=== PATIENT | male | born 1965 | race Caucasian/White ===

== ENCOUNTER 2024-05-07 10:02 | Outpatient (AMB) | payer OTHER, SELFPAY ==
--- NOTE | 2024-05-07 10:12 | A.OFFPC_ITS ---
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 Intake Note: establishing care Allergies No Known Allergies Allergy (Verified 05/07/24 10:12) Medication List - Last Reconciled 05/07/24 by Vargas Day MD allopurinol 300 mg PO DAILY ascorbic acid (vitamin C) 1 g PO Q6H aspirin (Adult Aspirin Regimen) 81 mg PO DAILY atorvastatin 20 mg PO DAILY calcium carbonate (Calcium 600) 600 mg PO DAILY ferrous sulfate 325 mg PO DAILY omega-3 fatty acids-fish oil 360-1,200 mg (Fish Oil) 1 cap PO DAILY Tobacco use date assessed: 05/07/24 Dental Screening Dental Screen Date: 05/07/24 Did you have a dental visit in the last 12 months?: Yes Did you have a dental problem in the last 6 months where you did not have access to dental care?: No Was dental information given to patient?: Patient has dentist HPI PATIENT ACCOUNTING REPRESENTATIVE requesting PE HPI Details New Patient? ?? Prior PCP:? Dr Coronel Last office visit/CPE:? > 1 yr Acute issue(s):? Low back pain. Worse with laying down. Imaging done years ago ? Bulging disc. Occassionally radiates down L posterior buttock/leg. Takes 3 ibuprofen occassionally. Urinary hesitancy and some notriuria ?? PMHx:?HLD, Gout, Mild anemia, diverticulitis SurgHx:? Deviated nasal septum FHx:? Mom: bradycardia. Dad: HTN, HLD. 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 Nonsmoker. EtOH Weekends 4-5. No drugs HPI Comments History of Present Illness Details Documentation assistance for Vargas Day MD, was provided by Torres Fletcher,? [place] [employer] Member on 05/07/2024 at 11:08 AM EST. Caraballo, Dr. Day, have read, observed, and verified documentation. 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 1. Little interest or pleasure in doing things: not at all 2. Feeling down, depressed, or hopeless: not at all 3. Trouble falling or staying asleep, or sleeping too much: several days 4. Feeling tired or having little energy: several days 5. Poor appetite or overeating: several days 6. Feeling bad about yourself - or that you are a failure or have let yourself or your family down: not at all 7. Trouble concentrating on things, such as reading the newspaper or watching television: not at all 8. Moving or speaking so slowly that other people could have noticed. Or the opposite - being so fidgety or restless that you have been moving around a lot more than usual: not at all 9. Thoughts that you would be better off or of hurting yourself in some way: not at all Total score: 3 Depression Screening Interpretation: Negative Depression Screening Done: Yes 07851 - PHQ-9 Billing: Yes Source: Developed by Drs. Danny Sanchez, Shavon Love, Maximiliano Bee and colleagues, with an educational lynne from [employer]. Thrive Questionnaire Date Thrive assessed: 05/07/24 I am a: Patient What is your living situation today?: I have a steady place to live Within the past 12 months, did the food you bought not last and you didn't have the money to get more?: Never true Within the past 12 months, did you worry whether your food would run out before you got money to buy more?: Never true Do you have trouble paying for medicines?: No Do you have trouble getting transportation to medical appointments?: No Do you have trouble paying your heating and electricity bill?: No Do you have trouble taking care of your child, family member or friend?: No Do you have trouble with day-to-day activities such as bathing, preparing meals, shopping, managing finances, etc.?: No Are you currently unemployed and looking for a job?: No Are you interested in more education?: No Please select the resources that you would like help with: None Currently or been in a relationship where the following occur: No concerns reported THRIVE Score: 0 AUDIT C Alcohol Use Questionnaire (AUDIT-C) 1. How often do you have a drink containing alcohol?: Monthly or less 2. How many drinks containing alcohol do you have on a typical day when you are drinking?: 3 or 4 3. How often do you have six or more drinks on one occasion?: Less than monthly Total Score: 3 Score Reviewed/Action Taken: Yes GABRIEL-7 AMB Questionnaire GABRIEL-7 Date GABRIEL - 7 assessed: 05/07/24 Feeling nervous, anxious, or on edge: 0 = Not at all Not being able to stop or control worryin = Not at all Worrying too much about different things: 0 = Not at all Trouble relaxin = Not at all Being so restless that it is hard to sit still: 0 = Not at all Becoming easily annoyed or irritable: 0 = Not at all Feeling afraid as if something awful might happen: 0 = Not at all Total GABRIEL-7 score (0-4 normal; 5-9 mild; 10-14 moderate; 15-21 severe): 0 Source: Developed by Drs. Danny Sanchez, Shavon Love, Maximiliano Bee and colleagues, with an educational lynne from [employer]. GABRIEL-7 Assessment Billing GABRIEL-7 Assessment Tool: GABRIEL-7 Assessment 12838 Review of Systems Const Denies chills, Denies fatigue, Denies fever(s), Denies headache(s) and Denies weakness ENT Denies dizziness and Denies headache(s) Card Denies chest pain, Denies lightheadedness, Denies dyspnea and Denies other (Palpitations) Resp Denies cough, Denies dyspnea, Denies wheezing and Denies other ( shortness of breath) Musc Reports back pain, Denies numbness and Denies tingling Neuro Denies dizziness, Denies headache(s), Denies numbness, Denies tingling, Denies paresthesias and Denies weakness Psych Denies anxiety and Denies depression Endo Denies fatigue Aller/Immun Denies wheezing Physical exam (Primary Care) Vital Signs: Last Vital Signs Temp 97.7 F 05/07/24 10:30 Pulse 56 05/07/24 10:30 Resp 16 05/07/24 10:30 BP 120/70 05/07/24 10:30 Pulse Ox 98 05/07/24 10:30 Oxygen Delivery Method Room Air 05/07/24 10:30 BMI result Body Mass Index 29.6 Tobacco/Smoking Status: Tobacco use Status Tobacco use date assessed 05/07/24 05/07/24 10:27 Patient Tobacco Use Status Never used Tobacco 05/07/24 10:27 e-Cigarette/Vaping Use Never Used 05/07/24 10:27 PHQ-9: PHQ-9 Score PHQ-9: Total score 3 05/07/24 10:42 Depression Screening Interpretation: Negative Thrive Assessment: Date of Thrive Assessment Date Thrive assessed 05/07/24 05/07/24 10:29 Currently or been in a relationship where the following occur: No concerns reported Const General: no acute distress and well developed Nutritional Appearance: well nourished Orientation/consciousness: patient oriented x3 [facility] Head: Yes normocephalic and Yes atraumatic Eyes General: appearance normal, both eyes and all related structures Pupils: Equal, round and reactive pupils present EOM: EOMs intact bilaterally Resp Effort & Inspection: normal respiratory effort Auscultation: clear to auscultation bilaterally Cardio Rate: regular rate Rhythm: regular rhythm Heart sounds: S1 normal heart sound present, S2 normal heart sound present, no gallops, no murmurs and no rubs Neuro General: patient oriented x3 and gait normal Cranial nerves: Yes Equal, round and reactive pupils present Psych Affect: normal affect Assessment and Plan Assessment & Plan (1) Low back pain: Code(s): M54.50 - Low back pain, unspecified Plan: Chronic?low?back?pain.??Likely?combination?of?recurrent?strain?and?symptoms?also ?consistent?with?a?mild/early?spinal?stenosis Recommended?x- rays?and?physical?therapy.??Patient?would?like?to?hold?off?on?this?though?he?may ?be?more?amenable?to?this?in?the?future. 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 Will?follow (2) Gout: Code(s): M10.9 - Gout, unspecified Plan: Will?follow?will?follow-up?check?uric?acid?level Continue?allopurinol Advised?decreased?alcohol?intake?on?weekends (3) Hyperlipidemia: Code(s): E78.5 - Hyperlipidemia, unspecified Plan: He?is?on?atorvastatin Check?lipid (4) Urinary hesitancy: Code(s): R39.11 - Hesitancy of micturition Plan: Check?urine?studies?and?PSA?level (5) Diverticulitis: Code(s): K57.92 - Diverticulitis of intestine, part unspecified, without perforation or abscess without bleeding Plan: History?of?diverticulitis Currently?has?no?symptoms (6) Anemia: Code(s): D64.9 - Anemia, unspecified Plan: History?of?anemia?and?he?has?put?himself?on?iron Check?complete?blood?count?and?iron?level (7) Laboratory exam ordered as part of routine general medical examination: Code(s): Z00.00 - Encounter for general adult medical examination without abnormal findings Plan: Check?labs Orders: Orders Comprehensive [place]. Panel Fast Today Z00.00 - Encounter for general adult medical examination without abnormal findings Complete Blood Count Auto Diff Today Z00.00 - Encounter for general adult medical examination without abnormal findings Prostate Specific Antigen Scr Today Z12.5 - Encounter for screening for malignant neoplasm of prostate UA and rflx microscopic Today Z00.00 - Encounter for general adult medical examination without abnormal findings TSH reflex Free T4 Today Z00.00 - Encounter for general adult medical examination without abnormal findings IRON PROFILE Today D64.9 - Anemia, unspecified AMB EKG-In Office Today Z00.00 - Encounter for general adult medical examination without abnormal findings Lipid Panel Today Z00.00 - Encounter for general adult medical examination without abnormal findings Microalbumin, Random (w Creat) Today I10 - Essential (primary) hypertension Uric Acid Today M10.9 - Gout, unspecified Coding Level of Care Code New Pt Level 3 (38189) Diagnoses Low back pain M54.50 Gout M10.9 Hyperlipidemia E78.5 Urinary hesitancy R39.11 Diverticulitis K57.92 Anemia D64.9 Laboratory exam ordered as part of routine general medical examination Z00.00 Additional Codes GABRIEL-7 Assessment Billing - GABRIEL-7 Assessment Tool: GABRIEL-7 Assessment [id number] ([id number])
[2024-05-07 10:30] VITALS: BP 120/70; PULSE 56; RESP 16; TEMP 36.5; O2SAT 98; BMI 29.6
== END 2024-05-07 11:27 | disposition home or self-care (01) ==
PROVIDERS: PCP Family Medicine; Visit Provider Family Medicine
DX: M54.50 Low back pain, unspecified (principal); M10.9 Gout, unspecified; E78.5 Hyperlipidemia, unspecified; R39.11 Hesitancy of micturition; K57.92 Diverticulitis of intestine, part unspecified, without perforation or abscess without bleeding; D64.9 Anemia, unspecified
CPT/HCPCS: 99203

== ENCOUNTER 2024-05-08 07:51 | Outpatient (REF) | payer OTHER, SELFPAY ==
[2024-05-08 11:43] LABS: Appearance Urine Clear; Color Urine Yellow; Glucose Urine UA Negative (Negative); Leukocyte Esterase Urine Negative (Negative); Nitrite Urine Negative (Negative); PH 5.5 (5.0-9.0); Specific Gravity - Urine 1.015 (1.005-1.025); Urine Blood Negative (Negative); Urine Ketones Negative (Negative); Urine Protein Negative (Neg-Trace)
[2024-05-08 12:09] LABS: MANUAL DIFF FLAG NO
[2024-05-08 12:41] LABS: Creatinine Urine 71.94 mg/dL; Microalbumin Urine < 5.0 mg/L
[2024-05-08 12:48] LABS: Alanine Aminotransferase 26 U/L (0-40); Albumin Level 4.1 g/dL (3.5-5.0); Alkaline Phosphatase 67 U/L (39-117); Anion Gap 11 (12-20); Aspartate Amino Transferase 27 U/L (5-37); Bilirubin Total 0.4 mg/dL (0.0-1.0); Blood Urea Nitrogen 31 mg/dL (9-16); Calcium 9.2 mg/dL (8.4-10.2); Carbon Dioxide 28 mmol/L (22-29); Chloride 104 mmol/L (96-108); Cholesterol 182 mg/dL (<200); Estimated Glomerular Filt Rate > 60; Glucose Fasting 97 mg/dL (60-99); HDL Cholesterol 82 mg/dL (>40); Iron 73 mcg/dL (45-160); LDL Cholesterol Calculated 92 mg/dL (<100); Percent Iron Saturation 30 % (15-50); Potassium 4.4 mmol/L (3.3-5.1); Sodium 139 mmol/L (135-145); Total Iron Binding Capacity 247 mcg/dL (228-428); Triglycerides 41 mg/dL (<150); Unsaturated Iron Binding 174 ug/dL
[2024-05-08 12:58] LABS: Prostate Specific Antigen Scr 1.02 ng/mL (<0.05-4.0)
[2024-05-08 13:05] LABS: Uric Acid 5.7 mg/dL (3.4-7.0)
[2024-05-08 13:11] LABS: TSH reflex Free T4 2.31 uIU/mL (0.32-4.0)
[2024-05-08 13:34] LABS: Basophils Percent Auto 0.5 % (0-2); Eosinophils Absolute Auto 0.1 X10*3/uL (0.0-0.4); Eosinophils Percent Auto 2.5 % (0-4); Hematocrit 39.1 % (42.0-52.0); Hemoglobin 13.4 g/dl (14.0-18.0); Imm Gran Abs Auto 0.02 X10*3/uL (0.00-0.03); Imm Gran Pct Auto 0.5 % (0.0-0.4); Lymphocytes Absolute Auto 1.1 X10*3/uL (1.2-4.9); Lymphocytes Percent Auto 26.7 % (20-40); Mean Corpuscular HGB Conc 34.3 g/dl (31.0-36.0); Mean Corpuscular Hemoglobin 31.9 pg (27.0-33.0); Mean Corpuscular Volume 93.1 fL (80.0-98.0); Mean Platelet Volume 10.2 fL (9.4-12.4); Monocytes Absolute Auto 0.6 X10*3/uL (0.1-1.2); Monocytes Percent Auto 14.2 % (2-11); Neutrophils Absolute Auto 2.2 x10*3/uL (2.0-8.3); Neutrophils Percent Auto 55.6 % (45-73); Platelet Count 194 X10*3/uL (160-400); Red Cell Distribution Width 14.1 % (11.0-16.0)
== END 2024-05-08 07:52 | disposition home or self-care (01) ==
LOC: HO.WFDLDS 07:51
PROVIDERS: Visit Provider Family Medicine
DX: Z00.00 Encounter for general adult medical examination without abnormal findings (principal); Z12.5 Encounter for screening for malignant neoplasm of prostate; I10 Essential (primary) hypertension; M10.9 Gout, unspecified; D64.9 Anemia, unspecified
CPT/HCPCS: 36415; 80053; 80061; 81003; 82043; 82570; 83540; 84153; 84443; 84550; 85025

== ENCOUNTER 2024-08-20 10:47 | Outpatient (AMB) | payer OTHER, SELFPAY ==
--- NOTE | 2024-08-20 11:06 | A.OFFPC_ITS ---
Vital Signs 08/20/24 11:09 Height 5 ft 8 in Weight 190 lb BMI 28.9 BP 161/76 H Blood Pressure Location Lt brachial Position Sitting Respiration 14 Pulse 57 Pulse Source Pulse Oximeter Temp 97.0 F Temp Source Skin Pulse Oximetry (%) 99 Oxygen Delivery Method Room Air Intake Visit Reasons: CPE with f/u labs and health maint. 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 30 mins HPI Details 59 y/o male presents for a CPE with f/u labs and health maintenance. Labs drawn 05/08/24. Reviewed labs with pt. Triglycerides 41. TC 182. LDL 92. HDL 82. He is on artovastatin 20mg daily. Ongoing mild anemia and notes he has had this before in the past. BP today 161/76, 57p. Notes urinary frequency and has to get up 2-3x a night. Notes last colonscopy was a number of years ago but does not remember the details. Reports difficulty achieving an ejaculation. Reports ongoing back pain. HPI Comments History of Present Illness Details Documentation assistance for Vargas Day MD, was provided by Torres Fletcher,? Director Of Land on 08/20/2024 at 11:54 AM EST. I, Dr. Day, have read, observ ed, and verified documentation. 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 1. Little interest or pleasure in doing things: not at all 2. Feeling down, depressed, or hopeless: not at all 3. Trouble falling or staying asleep, or sleeping too much: nearly every day 4. Feeling tired or having little energy: several days 5. Poor appetite or overeating: not at all 6. Feeling bad about yourself - or that you are a failure or have let yourself or your family down: not at all 7. Trouble concentrating on things, such as reading the newspaper or watching t elevision: not at all 8. Moving or speaking so slowly that other people could have noticed. Or the opposite - being so fidgety or restless that you have been moving around a lot more than usual: not at all 9. Thoughts that you would be better off or of hurting yourself in some way: not at all Total score: 4 50188 - PHQ-9 Billing: Yes Source: Developed by Drs. Danny Sanchez, Shavon Love, Maximiliano Bee and colleagues, with an educational lynne from [employer]. Thrive Questionnaire Date Thrive assessed: 08/20/24 I am a: Patient What is your living situation today?: I have a steady place to live Within the past 12 months, did the food you bought not last and you didn't have the money to get more?: Never true Within the past 12 months, did you worry whether your food would run out before you got money to buy more?: Never true Do you have trouble paying for medicines?: No Do you have trouble getting transportation to medical appointments?: No Do you have trouble paying your heating and electricity bill?: No Do you have trouble taking care of your child, family member or friend?: No Do you have trouble with day-to-day activities such as bathing, preparing meals, shopping, managing finances, etc.?: No Are you currently unemployed and looking for a job?: No Are you interested in more education?: No Please select the resources that you would like help with: None Currently or been in a relationship where the following occur: No concerns reported THRIVE Score: 0 AUDIT C Alcohol Use Questionnaire (AUDIT-C) 1. How often do you have a drink containing alcohol?: 2-3 times a week 2. How many drinks containing alcohol do you have on a typical day when you are drinking?: 3 or 4 3. How often do you have six or more drinks on one occasion?: Less than monthly Total Score: 5 GABRIEL-7 AMB Questionnaire GABRIEL-7 Date GABRIEL - 7 assessed: 08/20/24 Feeling nervous, anxious, or on edge: 1 = Several days Not being able to stop or control worryin = Not at all Worrying too much about different things: 0 = Not at all Trouble relaxin = Not at all Being so restless that it is hard to sit still: 0 = Not at all Becoming easily annoyed or irritable: 1 = Several days Feeling afraid as if something awful might happen: 0 = Not at all Total GABRIEL-7 score (0-4 normal; 5-9 mild; 10-14 moderate; 15-21 severe): 2 Source: Developed by Drs. Danny Sanchez, Shavon Love, Maximiliano Bee and colleagues, with an educational lynne from [employer]. GABRIEL-7 Assessment Billing GABRIEL-7 Assessment Tool: GABRIEL-7 Assessment 63097 Review of Systems Musc Reports back pain Physical exam (Primary Care) Vital Signs: Last Vital Signs Temp 97.0 F 08/20/24 11:09 Pulse 57 08/20/24 11:09 Resp 14 08/20/24 11:09 BP 161/76 H 08/20/24 11:09 Pulse Ox 99 08/20/24 11:09 Oxygen Delivery Method Room Air 08/20/24 11:09 BMI result Body Mass Index 28.9 Tobacco/Smoking Status: Tobacco use Status Tobacco use date assessed 05/07/24 08/20/24 11:08 Patient Tobacco Use Status Never used Tobacco 08/20/24 11:08 e-Cigarette/Vaping Use Never Used 08/20/24 11:08 PHQ-9: PHQ-9 Score PHQ-9: Total score 4 08/20/24 11:37 Thrive Assessment: Date of Thrive Assessment Date Thrive assessed 08/20/24 08/20/24 11:08 Currently or been in a relationship where the following occur: No concerns reported Coding Level of Care Code Est Pt Level 4 (68108) Est Pt Prev Care 40-64y(33735) Diagnoses Mild anemia D64.9 Hyperlipidemia E78.5 Hypertension I10 Other ejaculatory dysfunction N53.19 Low back pain M54.50 Deviated septum J34.2 Urinary frequency R35.0 Screening for colon cancer Z12.11 Screening for prostate cancer Z12.5 Elevated blood pressure reading R03.0 Adult general medical exam Z00.00 Additional Codes GABRIEL-7 Assessment Billing - GABRIEL-7 Assessment Tool: GABRIEL-7 Assessment 34787 ([id number]) PHQ-9 - 97867 - PHQ-9 Billing: Yes ([id number]) Assessment & Plan Assessment & Plan (1) Mild anemia: Code(s): D64.9 - Anemia, unspecified Category: Medical Plan: Mild?normocytic?anemia?normal?iron?levels?patient?notes?that?told?he?has?anemia? in?past Labs?ordered?to?investigate?further. We?can?discuss?next?visit (2) Hyperlipidemia: Code(s): E78.5 - Hyperlipidemia, unspecified Category: Medical Plan: Lipids?well?controlled?on?atorvastatin. Continue?current?medication (3) Hypertension: Code(s): I10 - Essential (primary) hypertension Category: Medical (4) Other ejaculatory dysfunction: Code(s): N53.19 - Other ejaculatory dysfunction Category: Medical Plan: Patient?says?he?has?no?difficulties?with?libido?or?maintaining?erection?but?does ?achieving?orgasm Offered?referral?to?urology?but?he?declines?this Also?discussed?couples?therapy Patient?declines?intervention?at?this time (5) Low back pain: Code(s): M54.50 - Low back pain, unspecified Category: Medical Plan: Ongoing?low?back?pain. 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 Checking?x-ray?of?lumbar?spine Start?physical?therapy Sent?a?script?for?meloxicam (6) Deviated septum: Code(s): J34.2 - Deviated nasal septum Category: Medical Plan: Can?use?nasal?saline (7) Urinary frequency: Code(s): R35.0 - Frequency of micturition Category: Medical Plan: Patient?eating?salty?foods?in?the?evening Normal?urinary?stream?and?PSA?within?limits Decrease?salt?and?sodium He?will?let?me?know?if?he?is?still?trouble (8) Screening for colon cancer: Code(s): Z12.11 - Encounter for screening for malignant neoplasm of colon Category: Medical Plan: Patient?thinks?he?had?a?colonoscopy?a?few?years?ago?[facility]. Requesting Report (9) Screening for prostate cancer: Code(s): Z12.5 - Encounter for screening for malignant neoplasm of prostate Category: Medical Plan: PSA?is?within?normal?limits Normal?urine?stream Will?continue?annual?screening (10) Elevated blood pressure reading: Code(s): R03.0 - Elevated blood-pressure reading, without diagnosis of hypertension Category: Medical Plan: Elevated?blood?pressure Will?follow-up?at?his?next?visit?and?if?still?elevated?will?discuss?medication (11) Adult general medical exam: Code(s): Z00.00 - Encounter for general adult medical examination without abnormal findings Category: Medical Plan: 59-year-old?male?presents?for?an?extended?exam Encouraged?healthy?diet?with?active?lifestyle?and?plenty?of?exercise Plan . Orders: Orders PT Evaluation and Treatment Today M25.511 - Pain in right shoulder, M25.569 - Pain in unspecified knee, M54.50 - Low back pain, unspecified XR lumbar spine 2-3V Today M54.50 - Low back pain, unspecified Complete Blood Count Auto Diff Today D64.9 - Anemia, unspecified, Z00.00 - Encounter for general adult medical examination without abnormal findings Reticulocyte Count Today D64.9 - Anemia, unspecified Vitamin B12 and Folate Today D64.9 - Anemia, unspecified, E53.8 - Deficiency of other specified B group vitamins Medications: New meloxicam 15 mg PO DAILY 30 days 30 tabs 2RF M54.50 - Low back pain, unspecified
[2024-08-20 11:09] VITALS: BP 161/76; PULSE 57; RESP 14; TEMP 36.1; O2SAT 99; BMI 28.9
== END 2024-08-20 12:11 | disposition home or self-care (01) ==
PROVIDERS: PCP Family Medicine; Visit Provider Family Medicine
DX: Z00.00 Encounter for general adult medical examination without abnormal findings (principal); D64.9 Anemia, unspecified; E78.5 Hyperlipidemia, unspecified; I10 Essential (primary) hypertension; N53.19 Other ejaculatory dysfunction; M54.50 Low back pain, unspecified; J34.2 Deviated nasal septum; R35.0 Frequency of micturition; Z12.11 Encounter for screening for malignant neoplasm of colon; Z12.5 Encounter for screening for malignant neoplasm of prostate

== ENCOUNTER → 2024-08-20 10:47 | Outpatient (BNVA) | payer OTHER, SELFPAY | PROVIDERS: PCP Family Medicine; Visit Provider Family Medicine | DX: Z00.00 Encounter for general adult medical examination without abnormal findings (principal); D64.9 Anemia, unspecified; E78.5 Hyperlipidemia, unspecified; I10 Essential (primary) hypertension; N53.19 Other ejaculatory dysfunction; M54.50 Low back pain, unspecified; J34.2 Deviated nasal septum; R35.0 Frequency of micturition; R03.0 Elevated blood-pressure reading, without diagnosis of hypertension; Z79.899 Other long term (current) drug therapy | CPT/HCPCS: 96127 ==

== ENCOUNTER 2024-10-09 09:16 | Outpatient (AMB) | payer OTHER, SELFPAY ==
--- NOTE | 2024-10-09 09:18 | MHC.PC.OV ---
Vital Signs 10/09/24 09:24 Height 5 ft 7.44 in Weight 187 lb BMI 28.9 BP 165/82 H Blood Pressure Location Rt brachial Position Sitting Respiration 16 Pulse 55 Pulse Source Pulse Oximeter Temp 97.7 F Temp Source Oral Pulse Oximetry (%) 99 Oxygen Delivery Method Room Air Intake Visit Reasons: f/u labs, chronic conditions Intake Note: patient here for follow up labs and chronic conditions Remedial Teacher Required: No Allergies No Known Allergies Allergy (Verified 10/09/24 09:22) Medication List - Last Reconciled 10/09/24 by Vargas Day MD allopurinol 300 mg PO DAILY ascorbic acid (vitamin C) 1 g PO Q6H aspirin (Adult Aspirin Regimen) 81 mg PO DAILY atorvastatin 20 mg PO DAILY calcium carbonate (Calcium 600) 600 mg PO DAILY meloxicam 15 mg PO DAILY 30 days multivitamin (Daily Multi-Vitamin tablet) 1 tab PO DAILY omega-3 fatty acids-fish oil 360-1,200 mg (Fish Oil) 1 cap PO DAILY Tobacco use date assessed: 10/09/24 Dental Screening Dental Screen Date: 10/09/24 Did you have a dental visit in the last 12 months?: Yes Did you have a dental problem in the last 6 months where you did not have access to dental care?: No Was dental information given to patient?: Patient has dentist HPI f/u labs, chronic conditions HPI Details 59 y/o male presents to f/u elevated BP, mild anemia, back pain and chronic conditions. Blood pressure today elevated at 165/82, 55p. No recent labs to review for his mild anemia. He notes back pain has improved. 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 1. Little interest or pleasure in doing things: not at all 2. Feeling down, depressed, or hopeless: not at all 3. Trouble falling or staying asleep, or sleeping too much: several days 4. Feeling tired or having little energy: not at all 5. Poor appetite or overeating: not at all 6. Feeling bad about yourself - or that you are a failure or have let yourself or your family down: not at all 7. Trouble concentrating on things, such as reading the newspaper or watching television: not at all 8. Moving or speaking so slowly that other people could have noticed. Or the opposite - being so fidgety or restless that you have been moving around a lot more than usual: not at all 9. Thoughts that you would be better off or of hurting yourself in some way: not at all Total score: 1 Source: Developed by Drs. Danny Sanchez, Shavon Love, Maximiliano Bee and colleagues, with an educational lynne from [employer]. Thrive Questionnaire Date Thrive assessed: 10/09/24 I am a: Patient What is your living situation today?: I have a steady place to live Within the past 12 months, did the food you bought not last and you didn't have the money to get more?: Never true Within the past 12 months, did you worry whether your food would run out before you got money to buy more?: Never true Do you have trouble paying for medicines?: No Do you have trouble getting transportation to medical appointments?: No Do you have trouble paying your heating and electricity bill?: No Do you have trouble taking care of your child, family member or friend?: No Do you have trouble with day-to-day activities such as bathing, preparing meals, shopping, managing finances, etc.?: No Are you currently unemployed and looking for a job?: No Are you interested in more education?: No Please select the resources that you would like help with: None Currently or been in a relationship where the following occur: No concerns reported THRIVE Score: 0 AUDIT C Alcohol Use Questionnaire (AUDIT-C) 1. How often do you have a drink containing alcohol?: 2-3 times a week 2. How many drinks containing alcohol do you have on a typical day when you are drinking?: 3 or 4 3. How often do you have six or more drinks on one occasion?: Never Total Score: 4 GABRIEL-7 AMB Questionnaire GABRIEL-7 Date GABRIEL - 7 assessed: 10/09/24 Feeling nervous, anxious, or on edge: 1 = Several days Not being able to stop or control worryin = Not at all Worrying too much about different things: 0 = Not at all Trouble relaxin = Not at all Being so restless that it is hard to sit still: 0 = Not at all Becoming easily annoyed or irritable: 0 = Not at all Feeling afraid as if something awful might happen: 0 = Not at all Total GABRIEL-7 score (0-4 normal; 5-9 mild; 10-14 moderate; 15-21 severe): 1 Source: Developed by Drs. Danny Sanchez, Shavon Love, Maximiliano Bee and colleagues, with an educational lynne from [employer]. GABRIEL-7 Assessment Billing GABRIEL-7 Assessment Tool: GABRIEL-7 Assessment 72017 Review of Systems Const Denies chills, Denies fatigue, Denies fever(s), Denies headache(s) and Denies weakness ENT Denies dizziness and Denies headache(s) Card Denies chest pain, Denies lightheadedness, Denies dyspnea and Denies other (Palpitations) Resp Denies cough, Denies dyspnea, Denies wheezing and Denies other ( shortness of breath) Musc Denies numbness and Denies tingling Neuro Denies dizziness, Denies headache(s), Denies numbness, Denies tingling, Denies paresthesias and Denies weakness Psych Denies anxiety and Denies depression Endo Denies fatigue Aller/Immun Denies wheezing Physical exam (Primary Care) Vital Signs: Last Vital Signs Temp 97.7 F 10/09/24 09:24 Pulse 55 10/09/24 09:24 Resp 16 10/09/24 09:24 BP 165/82 H 10/09/24 09:24 Pulse Ox 99 10/09/24 09:24 Oxygen Delivery Method Room Air 10/09/24 09:24 BMI result Body Mass Index 28.9 Tobacco/Smoking Status: Tobacco use Status Tobacco use date assessed 10/09/24 10/09/24 09:24 Patient Tobacco Use Status Never used Tobacco 10/09/24 09:21 e-Cigarette/Vaping Use Never Used 10/09/24 09:21 PHQ-9: PHQ-9 Score PHQ-9: Total score 1 10/09/24 09:24 Thrive Assessment: Date of Thrive Assessment Date Thrive assessed 10/09/24 10/09/24 09:29 Currently or been in a relationship where the following occur: No concerns reported Const General: no acute distress and well developed Nutritional Appearance: well nourished Orientation/consciousness: patient oriented x3 HENMT Head: Yes normocephalic and Yes atraumatic Eyes General: appearance normal, both eyes and all related structures Pupils: Equal, round and reactive pupils present EOM: EOMs intact bilaterally Resp Effort & Inspection: normal respiratory effort Auscultation: clear to auscultation bilaterally Cardio Rate: regular rate Rhythm: regular rhythm Heart sounds: S1 normal heart sound present, S2 normal heart sound present, no gallops, no murmurs and no rubs Neuro General: patient oriented x3 and gait normal Cranial nerves: Yes Equal, round and reactive pupils present Psych Affect: normal affect Coding Level of Care Code Est Pt Level 4 (76140) Diagnoses Hypertension I10 Mild anemia D64.9 Low back pain M54.50 Additional Codes GABRIEL-7 Assessment Billing - GABRIEL-7 Assessment Tool: GABRIEL-7 Assessment 21284 ([id number]) Assessment & Plan Assessment & Plan (1) Hypertension: Code(s): I10 - Essential (primary) hypertension Category: Medical Plan: Blood?pressure?is?significantly?elevated.??We?discussed?that?this?is?hypertension. Start?losartan Risks/benefits?discussed. Goal?is?less?than?140/ He?can?check?his?blood?pressures?at?home Will?review?at?next?visit (2) Mild anemia: Code(s): D64.9 - Anemia, unspecified Category: Medical Plan: Mild?anemia?which?was?discussed?with?patient?today?again He?has?not?gotten?his?lab?work?done.??He?will?get?this?done?today. 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
[2024-10-09 09:24] VITALS: BP 165/82; PULSE 55; RESP 16; TEMP 36.5; O2SAT 99; BMI 28.9
--- NOTE | 2024-10-09 16:49 | AM.OFFVISNUR ---
Vital Signs 10/09/24 09:24 Height 5 ft 7.44 in Weight 187 lb BMI 28.9 BP 165/82 H Blood Pressure Location Rt brachial Position Sitting Respiration 16 Pulse 55 Pulse Source Pulse Oximeter Temp 97.7 F Temp Source Oral Pulse Oximetry (%) 99 Oxygen Delivery Method Room Air Intake Visit Reasons: f/u labs, chronic conditions Allergies No Known Allergies Allergy (Verified 10/09/24 09:22) Medication List - Last Reconciled 10/09/24 by Vargas Day MD allopurinol 300 mg PO DAILY ascorbic acid (vitamin C) 1 g PO Q6H aspirin (Adult Aspirin Regimen) 81 mg PO DAILY atorvastatin 20 mg PO DAILY calcium carbonate (Calcium 600) 600 mg PO DAILY meloxicam 15 mg PO DAILY 30 days multivitamin (Daily Multi-Vitamin tablet) 1 tab PO DAILY omega-3 fatty acids-fish oil 360-1,200 mg (Fish Oil) 1 cap PO DAILY Office Procedures Flu Questionnaire Does the patient have a severe egg allergy?: No Does the patient have severe life threatening allergies?: No Does the patient have a fever or illness today?: No Has the patient ever had Guillain-[place] Syndrome?: No Has the patient ever had any past reaction to a flu shot?: No Immunizations Fluarix Triv 8218-8329 (PF) 45 mcg (15 mcg x 3)/0.5 mL IM syringe Performing Provider: Vargas Day MD Per[place] [facility] Administered by: Aileen Tuttle RN on 10/09/24 11:30 Dose Route Admin Location Dispensed Lot Number Expiration Date [facility] Relaster 0.5 mL IM Right Deltoid 0.5 mL [id number] 03/24/25 [id number] [employer] VIS Given Date VIS Provided VIS Publication Date 10/09/24 Single Vaccine 21 Eligibility Eligibility Date Funding Source Not [facility] Eligible 10/09/24 Private Assessment & Plan Assessment & Plan (1) Hypertension: Code(s): I10 - Essential (primary) hypertension Category: Medical (2) Mild anemia: Code(s): D64.9 - Anemia, unspecified Category: Medical (3) Low back pain: Code(s): M54.50 - Low back pain, unspecified Category: Medical Orders: Orders Testosterone, Free/Total Today R53.83 - Other fatigue Influenza Immunization Today Z23 - Encounter for immunization Medications: New losartan 50 mg PO DAILY 90 tabs 3RF 90 days Fluarix Triv [id number] (PF) (flu vacc [id number] 6mos up(PF)) 0.5 mL IM ONCE 0.5 mL 0RF NS Z23 - Encounter for immunization
== END 2024-10-09 10:08 | disposition home or self-care (01) ==
PROVIDERS: PCP Family Medicine; Visit Provider Family Medicine
DX: I10 Essential (primary) hypertension (principal); D64.9 Anemia, unspecified; M54.50 Low back pain, unspecified; Z23 Encounter for immunization

== ENCOUNTER → 2024-10-09 09:16 | Outpatient (BNVA) | payer OTHER, SELFPAY | PROVIDERS: PCP Family Medicine; Visit Provider Family Medicine | DX: I10 Essential (primary) hypertension (principal); D64.9 Anemia, unspecified; M54.50 Low back pain, unspecified; Z23 Encounter for immunization | CPT/HCPCS: 90471; 90656; 96127 ==

== ENCOUNTER 2024-10-09 10:21 | Outpatient (REF) | payer OTHER, SELFPAY ==
[2024-10-09 14:27] LABS: MANUAL DIFF FLAG NO
[2024-10-09 14:34] LABS: Basophils Percent Auto 0.8 % (0-2); Eosinophils Absolute Auto 0.1 X10*3/uL (0.0-0.4); Eosinophils Percent Auto 2.1 % (0-4); Hemoglobin 13.5 g/dl (14.0-18.0); Imm Gran Abs Auto 0.01 X10*3/uL (0.00-0.03); Imm Gran Pct Auto 0.3 % (0.0-0.4); Lymphocytes Percent Auto 26.3 % (20-40); Mean Corpuscular HGB Conc 33.8 g/dl (31.0-36.0); Mean Corpuscular Hemoglobin 31.8 pg (27.0-33.0); Mean Corpuscular Volume 94.3 fL (80.0-98.0); Mean Platelet Volume 10.4 fL (9.4-12.4); Monocytes Absolute Auto 0.4 X10*3/uL (0.1-1.2); Monocytes Percent Auto 10.3 % (2-11); Neutrophils Absolute Auto 2.3 x10*3/uL (2.0-8.3); Neutrophils Percent Auto 60.2 % (45-73); Platelet Count 210 X10*3/uL (160-400); Red Blood Count 4.24 X10*6/uL (4.60-5.80); Red Cell Distribution Width 13.5 % (11.0-16.0); Retic HGB Equivalent 35.2 pg (30.0-35.0); Reticulocyte Percent 1.2 % (0.5-1.8); Reticulocytes Absolute 0.052 X10*6/uL (0.026-0.095); White Blood Count 3.9 X10*3/uL (4.8-10.8)
[2024-10-09 15:18] LABS: Vitamin B12 657 pg/mL (200-900)
[2024-10-15 21:43] LABS: Testosterone, Free 82.3 pg/mL (35.0-155.0); Testosterone, Total 680 ng/dL (250-1100)
== END 2024-10-09 10:22 | disposition home or self-care (01) ==
LOC: HO.WFDLDS 10:21
PROVIDERS: Visit Provider Family Medicine
DX: Z00.00 Encounter for general adult medical examination without abnormal findings (principal); D64.9 Anemia, unspecified; R53.83 Other fatigue; E53.8 Deficiency of other specified B group vitamins
CPT/HCPCS: 36415; 82607; 82746; 84402; 84403; 85025; 85045

== ENCOUNTER 2025-01-08 08:35 | Outpatient (AMB) | payer OTHER, SELFPAY ==
--- NOTE | 2025-01-08 08:47 | A.OFFPC_ITS ---
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 Required: No Allergies No Known Allergies Allergy (Verified 01/08/25 08:48) Medication List - Last Reconciled 01/08/25 by Vargas Day MD allopurinol 300 mg PO DAILY ascorbic acid (vitamin C) 1 g PO Q6H aspirin (Adult Aspirin Regimen) 81 mg PO DAILY atorvastatin 20 mg PO DAILY calcium carbonate (Calcium 600) 600 mg PO DAILY meloxicam 15 mg PO DAILY 30 days multivitamin (Daily Multi-Vitamin tablet) 1 tab PO DAILY omega-3 fatty acids-fish oil 360-1,200 mg (Fish Oil) 1 cap PO DAILY Tobacco use date assessed: 10/09/24 Dental Screening Dental Screen Date: 10/09/24 HPI f/u HTN, mild anemia HPI Details 59 y/o male presents to f/u HTN, mild an emia. Labs drawn 10/09/24. Reviewed labs with pt. Ongoing mild anemia. Testosterone levels are fine. Blood pressure today 126/74, 84p. He notes blood pressure at home have been fine. He is no longer taking losartan 50mg daily. He has been cutting back on his salt intake. HPI Comments History of Present Illness Details Documentation assistance for Vargas Day MD, was provided by Torres Fletcher,? Protective Signal Installer on 01/08/2025 at 9:22 AM DELILAH. Rashmi, Dr. Day, have read, observed, and verified documentation. ?? 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 Current occupational exposures/hazards: No Cognitive needs: No Hearing needs: No Vision needs: Yes Questionnaire Thrive Questionnaire Date Thrive assessed: 10/03/24 I am a: Patient What is your living situation today?: I have a steady place to live Within the past 12 months, did the food you bought not last and you didn't have the money to get more?: Never true Within the past 12 months, did you worry whether your food would run out before you got money to buy more?: Never true Do you have trouble paying for medicines?: No Do you have trouble getting transportation to medical appointments?: No Do you have trouble paying your heating and electricity bill?: No Do you have trouble taking care of your child, family member or friend?: No Do you have trouble with day-to-day activities such as bathing, preparing meals, shopping, managing finances, etc.?: No Are you currently unemployed and looking for a job?: No Are you interested in more education?: No Please select the resources that you would like help with: None Currently or been in a relationship where the following occur: No concerns reported THRIVE Score: 0 GABRIEL-7 AMB Questionnaire GABRIEL-7 Date GABRIEL - 7 assessed: 10/09/24 Source: Developed by Drs. Danny Sanchez, Shavon Love, Maximiliano Bee and colleagues, with an educational lynne from [employer]. Review of Systems Const Denies chills, Denies fatigue, Denies fever(s), Denies headache(s) and Denies weakness ENT Denies dizziness and Denies headache(s) Card Denies dyspnea Resp Denies cough, Denies dyspnea, Denies wheezing and Denies other (shortness of breath) Musc Denies numbness and Denies tingling Neuro Denies dizziness, Denies headache(s), Denies numbness, Denies tingling and Denies weakness Psych Denies anxiety and Denies depression Endo Denies fatigue Aller/Immun Denies wheezing Physical exam (Primary Care) Vital Signs: Last Vital Signs Temp 97.9 F 01/08/25 08:48 Pulse 84 01/08/25 08:48 Resp 12 01/08/25 08:48 BP 126/74 01/08/25 08:48 Pulse Ox 98 01/08/25 08:48 Oxygen Delivery Method Room Air 01/08/25 08:48 BMI result Body Mass Index 29.1 Tobacco/Smoking Status: Tobacco use Status Tobacco use date assessed 10/09/24 01/08/25 08:47 Patient Tobacco Use Status Never used Tobacco 01/08/25 08:47 e-Cigarette/Vaping Use Never Used 01/08/25 08:47 Thrive Assessment: Date of Thrive Assessment Date Thrive assessed 10/03/24 01/08/25 08:47 Currently or been in a relationship where the following occur: No concerns reported Const General: well developed; No acute distress Nutritional Appearance: well nourished Orientation/consciousness: patient oriented x3 HENMT Head: Yes normocephalic and Yes atraumatic Eyes General: appearance normal, both eyes and all related structures Pupils: Equal, round and reactive pupils present EOM: EOMs intact bilaterally Resp Effort & Inspection: normal respiratory effort Auscultation: clear to auscultation bilaterally Cardio Rate: regular rate Rhythm: regular rhythm Heart sounds: S1 normal heart sound present, S2 normal heart sound present, no gallops, no murmurs and no rubs Neuro General: patient oriented x3 and gait normal Cranial nerves: Yes Equal, round and reactive pupils present Psych Affect: normal affect Coding Level of Care Code Est Pt Level 4 (04738) Diagnoses Sleep apnea G47.30 Mild anemia D64.9 Elevated blood pressure reading R03.0 Screening for colon cancer Z12.11 Hypersomnia G47.10 Assessment & Plan Assessment & Plan (1) Sleep apnea: Code(s): G47.30 - Sleep apnea, unspecified Category: Medical (2) Mild anemia: Code(s): D64.9 - Anemia, unspecified Category: Medical Plan: Mild?stable?anemia Will?continue?to?monitor Denies blood?stool (3) Elevated blood pressure reading: Code(s): R03.0 - Elevated blood-pressure reading, without diagnosis of hypertension Category: Medical Plan: Patient?had?had?elevated?blood?pressure?readings. He?as?brought?in a?log?of?all?of?blood?pressures?which?are?all?consi stently?within?normal?range No?hypertension Does?not?need?medication (4) Screening for colon cancer: Code(s): Z12.11 - Encounter for screening for malignant neoplasm of colon Category: Medical Plan: Patient?says?his?last?colonoscopy?was?through?[facility]?about?5?years?ago?and?that?he?was?told?he?needed?to?follow-up?in?5?years. I?am?referring?him?back?to?[facility] (5) Hypersomnia: Code(s): G47.10 - Hypersomnia, unspecified Category: Medical Plan: Daytime?fatigue?and?hypersomnia Referred?to?Sleep?Medicine Orders: Referrals Sleep Medicine Referral G47.10 - Hypersomnia, unspecified Gastroenterology Referral Z12.11 - Encounter for screening for malignant neoplasm of colon Medications: Discontinued losartan Discontinued Reason: Doctor's Order 50 mg PO DAILY 90 days 90 tabs 3RF
[2025-01-08 08:48] VITALS: BP 126/74; PULSE 84; RESP 12; TEMP 36.6; O2SAT 98; BMI 29.1
== END 2025-01-08 09:42 | disposition home or self-care (01) ==
LOC: HO.HMCFM 08:36
PROVIDERS: PCP Family Medicine; Visit Provider Family Medicine
DX: G47.30 Sleep apnea, unspecified (principal); D64.9 Anemia, unspecified; R03.0 Elevated blood-pressure reading, without diagnosis of hypertension; Z12.11 Encounter for screening for malignant neoplasm of colon; G47.10 Hypersomnia, unspecified

== ENCOUNTER → 2025-01-08 08:35 | Outpatient (BNVA) | payer OTHER, SELFPAY | PROVIDERS: PCP Family Medicine; Visit Provider Family Medicine | DX: Z13.89 Encounter for screening for other disorder (principal) ==

== ENCOUNTER 2025-03-18 08:06 | Outpatient (AMB) | payer OTHER, SELFPAY ==
[2025-03-18 08:07] VITALS: BP 124/88; PULSE 65; O2SAT 97; BMI 29.3
--- NOTE | 2025-03-18 08:07 | MHC.OFFVIS ---
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 Daytime fatigue and hypersomnia Allergies No Known Allergies Allergy (Verified 03/18/25 08:09) HPI Comments Details: 59 year old male here for a sleep apnea referred to us by Dr. Day. He has been feeling tired all the time and especially when driving after lunch, he notices he nods as he is driving. He goes to bed at 10pm and gets up at 6am, with 3 bathroom breaks and has difficulty falling asleep and staying asleep. He has a deviated septum, takes Afrin twice daily, however feels congested when laying flat and can't breathe, will breathe through the mouth. His mouth gets very dry. Denies bruxism and morning headaches. RLS uncomfortable sensation to move the legs bilaterally, keeps him up at night, stretching and walks around. He has gout, on allopurinol. Mood is generally good. Memory is stable. Drinks alcohol on the weekends, does not smoke or vape. 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 Current occupational exposures/hazards: No Cognitive needs: No Hearing needs: No Vision needs: Yes Physical Exam Vital Signs: Last Vital Signs Pulse 65 03/18/25 08:07 BP 124/88 03/18/25 08:07 Pulse Ox 97 03/18/25 08:07 Oxygen Delivery Method Room Air 03/18/25 08:07 BMI result Body Mass Index 29.3 Const General: cooperative, comfortable and no acute distress Nutritional Appearance: average body habitus Orientation/consciousness: patient oriented x3 HEENT Face and sinus: Yes face symmetric Throat: Yes other ([place] 2) Eyes Pupils: Equal, round and reactive pupils present Neck Neck: Yes full ROM Resp Effort & Inspection: normal respiratory effort and able to speak in complete sentences Neuro General: patient oriented x3 and moves all extremities Cranial nerves: Yes Facial sensation intact/muscles of mastication intact, Yes Equal, round and reactive pupils present, Yes Normal accommodation reflex present, Yes Normal facial strength present, Yes Midline tongue present, Yes Ability to bilaterally rotate head present and Yes Ability to bilaterally elevate shoulders present Cognition (Neuro): normal cognition Gait exam (Neuro): Normal gait present Motor exam (neuro): 5/5 motor strength present throughout and Normal motor muscle tone present throughout Deep tendon reflexes (DTR's): Right triceps reflex intensity grade: 2+, Left triceps reflex intensity grade: 2+, Rt Biceps (C5, C6): 2+, Left biceps reflex intensity grade: 2+, Right brachioradialis reflex intensity grade: 2+, Left brachioradialis reflex intensity grade: 2+, Right patellar reflex intensity grade: 2+, Left patellar reflex intensity grade: 2+, Right ankle reflex intensity grade: 2+ and Left ankle reflex intensity grade: 2+ Psych Appearance: grossly normal Thought process: Normal thought process present Thought content: Normal thought content present Results Reviewed Results Reviewed: Labs reviewed with patient. Assessment & Plan Assessment & Plan (1) Excessive daytime sleepiness: Code(s): G47.19 - Other hypersomnia Category: Medical (2) Deviated septum: Code(s): J34.2 - Deviated nasal septum Category: Medical Plan HST r/o ARLEN Fatigue Labs r/o nutritional deficiencies ENT Nasal Septum Deviation f/u in 3 months Orders: Orders RT home sleep study Today G47.19 - Other hypersomnia Comprehensive Met. Panel Today G47.19 - Other hypersomnia Vitamin D 25-OH Total Today G47.19 - Other hypersomnia Ferritin Today G47.19 - Other hypersomnia Homocysteine Today G47.19 - Other hypersomnia, G47.9 - Sleep disorder, unspecified, R53.83 - Other fatigue Methylmalonic Acid Today G47.19 - Other hypersomnia, G47.9 - Sleep disorder, unspecified, R53.83 - Other fatigue TSH reflex Free T4 Today G47.19 - Other hypersomnia Referrals Ear/Nose/Throat Referral G47.19 - Other hypersomnia, J34.2 - Deviated nasal septum Patient Instructions: Sleep Hygiene provided: set a scheduled bedtime and wake time to help regulate the circadian rhythm and balance the release of pituitary hormones. Sleep in a dark room, temperatures below 68 degrees, and no devices n bed. Limit caffeinated products 6 hours prior to bed, and limit fluids 2-4 hours prior to bed. Gentle night yoga, diffusing essential oils, and playing soft music can be relaxing. Coding Level of Care Code New Pt Level 4 (92636) Diagnoses Excessive daytime sleepiness G47.19 Deviated septum J34.2 Time Spent (min) 30 Comment Evaluation Sleep Questionnaire Difficulty falling asleep: Yes Difficulty staying asleep?: Yes Number of arousals: 3-4 Snoring: No Witnessed apneas: No Gasping arousals: No Nocturia: Yes (2-3) GERD: No Vivid dreams: No Acting out dreams: No Abnormal behavior in sleep: No Abnormal movements in sleep: Yes (rls-) Morning headaches: No Excessive daytime sleepiness: Yes Daytime naps: No Restless legs: Yes Hallucinations: No Sleep paralysis: No Drop attacks: No Sleep Study: No CPAP: No
== END 2025-03-18 08:48 | disposition home or self-care (01) ==
LOC: HO.HSMS 08:06
PROVIDERS: PCP Family Medicine; Visit Provider Physician Assistant Medical
DX: G47.19 Other hypersomnia (principal); J34.2 Deviated nasal septum
CPT/HCPCS: 99204

== ENCOUNTER → 2025-06-02 08:10 | Outpatient (REF) | payer OTHER, SELFPAY ==
--- OUTSIDE RECORDS SUMMARY | 2025-06-02 08:54 | XMS_ITS | Clinical Summary ---
Author Organization [facility] [address] [place] [address] [place] [phone] Phone Care Team Providers Care Bias Cutter Name Role Phone Vargas Day MD Primary Care Provider Allergies Active Allergy Reactions Criticality Noted Date Comments Nut - Unspecified Anaphylaxis High 08/17/2010 Walnuts and [place] Nuts Medications indomethacin (INDOCIN) 50 mg capsule Take 1 Capsule by mouth 3 times daily as needed for Other (gout attack). Prn pain 05/12/2022 Active OMEGA-3 FATTY ACIDS-FISH OIL ORAL Take 2,100 mg by mouth daily. Active calcium carbonate/vitam in D3 (CALCIUM 600 + D,3, ORAL) Take by mouth. Active multivitamin (MULTIPLE VITAMINS ORAL) 1 DAILY Activ e allopurinoL (ZYLOPRIM) 300 mg tablet Take 1 tablet by mouth once daily 90 tablet 11/18/2024 Active atorvastatin (LIPITOR) 20 mg tablet Take 1 tablet by mouth once daily 90 tablet 12/05/2024 Active meloxicam (MOBIC) 15 mg tablet Take 1 tablet (15 mg total) by mouth 1 (one) time each day. 10/22/2024 Active Active Problems Problem Noted Date Diagnosed Date Chronic bilateral low back pain without sciatica 10/05/2022 Diverticulitis 11/27/2020 Overview (09/15/2024): x2 Anxiety 02/18/2020 Erectile dysfunction 03/02/2016 Hypercholesterolemia 06/23/2014 Overweight 10/18/2011 Congenital reduction deformi ties of brain ([facility] V24, [facility] V28) 06/11/2007 Gout, unspecified 06/11/2007 Overview (09/15/2024): Left first MTP jt Allergic rhinitis 04/17/2006 Headache 04/17/2006 Encounters Date Type Department Care Team Description 03/19/2025 Telephone Gastroenterology - [place] [address] [place] [address] Kathy Caceres MD from Last 3 Months Immunizations Name Administration Dates Next Due Influenza Quadravalent, MDCK , 0.5ml, preservative free (Flucelvax) 6mo and older 10/05/2022 Influenza Quadravalent, MDCK , 0.5ml, with preservative (Flucelvax) 6mo and older 06/05/2018 Influenza trivalent, with preservative (Fluzone; Afluria) 6mo and older 06/28/2016,07/16/2015,06/20/2013,2011,08/17/2010,08/27/2008 Td Tetanus diptheria (Tdvax) 7yo and older 10/05/2022,03/30/2005 Tdap Tetanus diptheria acell ular pertussis (Boostrix; Adacel) 7yo and older 06/18/2012 Surgical History Surgery Date Site/Laterality Comments SINUS SURGERY PROCEDURE: AL UNLISTED PROCEDURE ACCESSORY SINUSES COLONOSCOPY 01/09/2014 PROCEDURE: HISTORICAL COLONOSCOPY; COMMENT: tics and hemorrhoids; repeat in ten yrs COLONOSCOPY 01/26/2021 PROCEDURE: HISTORICAL COLONOSCOPY; COMMENT: dr. caceres Medical History Medical History Date Comments Allergic rhinitis, cause unspecified DX:Allergic rhinitis, cause unspecified Headache(784.0) DX:Headache(784. 0) Gout, unspecified 06/11/2007 DX:Gout, unspe cified Congenital reduction deformi ties of brain ([facility]/HCC V24, [facility]/HCC V28) 06/11/2007 DX:Congenital reducti on deformities of brain ([facility]) Gout DX:Gout Elevated cholesterol 08/18/2010 DX:Elevated cholesterol Diverticulosis 01/09/2014 DX:Diverticulosi s Family History Medical History Relation Name Comments Hyperlipidemia Brother 1 Arthritis Father Hyperlipidemia Father Sleep apnea Father Glaucoma Maternal Grandfather Lung cancer Paternal Grandfather smoker Asthma Son 1 Relation Name Status Comments Brother 1 Alive Brother 2 Alive x 2 cholesterol elevated Father (Age 79) htn - gout Maternal Grandfather ?? stro ke Maternal Grandmother ??? Mother Alive well Paternal Grandfather lung ca ncer Paternal Grandmother ??? res p prob Son 1 Son 2 Alive crouzons syndro me Social History Tobacco Use Types Packs/Day Years Used Date Smoking Tobacco: Never Smokeless Tobacco: Never Alcohol Use Standard Drinks/Week Comments Yes 0 (1 standard drink = 0.6 oz pur e alcohol) Sex and Gender Information Value Date Recorded Sex Assigned at Not on file Legal Sex Male 6:04 PM EST Gender Identity Not on file Sexual Orientation Not on file Obstetrics History Last Filed Vital Signs Vital Sign Reading Time Taken Comments Blood Pressure 127/69 04/17/2023 10:05 AM EDT Pulse 72 04/17/2023 10:05 AM EDT Temperature - - Respiratory Rate - - Oxygen Saturation - - Inhaled Oxygen Concentration - - Weight 86.3 kg (190 lb 3.2 oz) 04/17/2023 10:05 AM EDT Height 170.2 cm (5' 7 ) 04/17/2023 10:05 AM EDT Body Mass Index 29.79 04/17/2023 10:05 AM EDT Plan of Treatment Upcoming Encounters Date Type Department Care Team (Late st Contact Info) Description 06/13/2025 11:00 AM EDT Appointment [facility] [address] [place] [address] Kathy Caceres MD [address] [place] [phone] Health Maintenance Due Date Last Done Comments Pneumococcal Vaccine: 50+ Years (1 of 1 - PCV) 2013 Zoster Vaccines (1 of 2) 2013 Social Influencers of Health Screening 09/03/2022 Depression Screening 09/25/2024 COVID-19 Vaccine ( season) 2025 03/06/2021, 02/06/2021 Influenza Vaccine (#1) 2025 , 06/05/2018, 06/28/2016, Additional history exists Colorectal Cancer Screening: Colonoscopy 01/26/2026 01/26/2021 Cholesterol Screening (Lipid Panel) 04/17/2028 04/17/2023 DTaP,Tdap,and Td Vaccines (4 - Td or Tdap) 10/05/2032 10/05/2022, 06/18/2012, 03/30/2005 RSV Immunization Adult Patients (1 - 1-dose 75+ series) 2038 HIV Screening Completed 12/07/2020 Hepatitis C Screening Completed 12/07/2020 HIB Vaccines Aged Out No longer eligi ble based on patient's age to complete this topic HPV Vaccines Aged Out No longer eligi ble based on patient's age to complete this topic Hepatitis A Vaccines Aged Out No long er eligible based on patient's age to complete this topic Hepatitis B Vaccines Aged Out No long er eligible based on patient's age to complete this topic IPV Vaccines Aged Out No longer eligi ble based on patient's age to complete this topic MMR Vaccines Aged Out No longer eligi ble based on patient's age to complete this topic Meningococcal ACWY Vaccine Aged Out N o longer eligible based on patient's age to complete this topic Meningococcal B Vaccine Aged Out No l onger eligible based on patient's age to complete this topic RSV Immunization Patients Under 20 months Aged Out No longer eligible based on patient's age to complete this topic Varicella Vaccines Aged Out No longer eligible based on patient's age to complete this topic Procedures Procedure Name Priority Date/Time Associated Diagnosis Comments LIPID PANEL Routine 04/17/2023 COLONOSCOPY Routine 01/26/2021 HEPATITIS C SCREENING Routine 12/07/2020 HIV SCREENING Routine 12/07/2020 from Last 3 Months or Most Recently Relevant to Health Maintenance Results * (ABNORMAL) Lipid panel (04/17/2023) LDL/HDL Ratio 2 0 - 4 Triglycerides 45 0 - 150 mg/dL Cholesterol 205(A) 0 - 200 mg/dL HDL 105 >=40 mg/dL LDL Cholesterol 91 0 - 100 mg/dL Blood Venous blood specimen / Unknown Historical Provider LAB BLOOD ORDERABLES Arianne l Result * Colonoscopy (01/26/2021) Colonoscopy no interpretation , abstracted Anatomical Region Laterality Modality Other [facility] Provider HEALTH MAINTENANCE Final Result * HIV Screening (12/07/2020) Pathologist [facility] HIV Screening abstracted [facility] Provider HEALTH MAINTENANCE Final Result * Hepatitis C Screening (12/07/2020) Pathologist [facility] Hepatitis C Screening abstracted [facility] Provider HEALTH MAINTENANCE Final Result from Last 3 Months or Most Recently Relevant to Health Maintenance Insurance [employer] Care Teams Bias Cutter Relationship Specialty Start Date End Date Vargas Day MD [address] [place] [address] Dr Audrey [place] PCP - General Family Medicine 01/08/25
--- OUTSIDE RECORDS SUMMARY | 2025-06-02 08:54 | XMS_ITS ---
Author Name [facility] Organization Unknown Care Team Organization Name Specialty Phone Email Start Date End Da te [facility] Termed, PROVIDER Primary Care 08/02/202204/25
== END ==
LOC: HO.SL 08:10
PROVIDERS: PCP Family Medicine; Visit Provider Physician Assistant Medical
DX: G47.33 Obstructive sleep apnea (adult) (pediatric) (principal); G47.19 Other hypersomnia
CPT/HCPCS: 95806

== ENCOUNTER → 2025-06-02 13:32 | Outpatient (BNV) | payer OTHER, SELFPAY | PROVIDERS: PCP Family Medicine; Visit Provider Psychiatry & Neurology Neurology | DX: G47.33 Obstructive sleep apnea (adult) (pediatric) (principal) | CPT/HCPCS: 95806 ==

== ENCOUNTER 2025-06-18 07:58 | Outpatient (AMB) | payer OTHER, SELFPAY ==
--- OUTSIDE RECORDS SUMMARY | 2025-06-13 09:55 | XMS_ITS | Encounter Summary ---
Author Organization [facility] Address [address] [place] [address] Care Team Providers Care Fertilizer Mixer Name Role Phone Vargas Day MD Primary Care Provider +- [phone] Reason for Referral * Hospital - Outpatient (Routine) - Closed Specialty Diagnoses / Procedures Referred By Basia mercado Referred To Contact Gastroenterology Diagnoses Hx of colonic polyps Procedures COLONOSCOPY Anesthesia - MAC; [facility] ENDOSCOPY Kathy Caceres MD [address] [address] Phone: tel: fax: [facility] Endoscopy [address] [place] [address] Phone: tel: Referral ID Status Reason Start Date Expiration Date Visits Re quested Visits Authorized [id number] Closed 03/20/2025 03/20/2026 1 1 Reason for Visit * Auth/Cert (Routine) Specialty Diagnoses / Procedures Referred By Basia mercado Referred To Contact Diagnoses Personal history of colon polyps, unspecified Procedures COLONOSCOPY ID COLONOSCOPY FLEXIBLE DIAGNOSTIC W COLLECTION SPECIMEN BRUSHING/WASHING [facility] End[facility] [address] [place] [address] Phone: tel: Referral ID Status Reason Start Date Expiration Date Visits Re quested Visits Authorized [id number] 1 1 Encounter Details Date Type Department Care Team (Latest Contact Info) Description 06/13/2025 9:55 AM EDT - 06/13/2025 11:59 PM EDT Hospital Encounter [facility] Endoscopy [address] [place] [address] Kathy Caceres MD 175 [facility] [address] [place] [address] Lex Flores CRNA Need Address Info Emile Regalado MD [address] [place] [address] Hx of colonic polyps Discharge Disposition: Home or Self Care Social History Tobacco Use Types Packs/Day Years Used Date Smoking Tobacco: Never Smokeless Tobacco: Never Alcohol Use Standard Drinks/Week Comments Yes 10 (1 standard drink = 0.6 oz pu re alcohol) weekends Interpersonal Safety Answer Date Record ed Physical Abuse 06/13/2025 Verbal Abuse 06/13/2025 Sex and Gender Information Value Date Recorded Sex Assigned at Male 06/13/2025 9:53 AM EDT Legal Sex Male 6:04 PM EST Gender Identity Male 06/13/2025 9:53 AM EDT Sexual Orientation Straight 06/13/2025 9: 53 AM EDT documented as of this encounter Last Filed Vital Signs Vital Sign Reading Time Taken Comments Blood Pressure 134/91 06/13/2025 11:24 AM EDT Pulse 77 06/13/2025 11:24 AM EDT Temperature 36.1 C (97 F) 06/13/2025 10:09 AM EDT Respiratory Rate 19 06/13/2025 11:24 AM EDT Oxygen Saturation 98% 06/13/2025 11:24 AM EDT Inhaled Oxygen Concentration - - Weight 83.9 kg (185 lb) 06/13/2025 10:09 AM EDT Height 170.2 cm (5' 7 ) 06/13/2025 10:09 AM EDT Body Mass Index 28.98 06/13/2025 10:09 AM EDT documented in this encounter Discharge Instructions * Attachments The following attachments cannot be sent through Care Everywhere. * Colon Polyps (Romanian) documented in this encounter Medications at Time of Discharge allopurinoL (ZYLOPRIM) 300 mg tablet Take 1 tablet by mouth once daily 90 tablet 11/18/2024 aspirin 81 mg chewable tablet Chew 1 tablet (81 mg total) 1 (one) time each day. atorvastatin (LIPITOR) 20 mg tablet Take 1 tablet by mouth once daily 90 tablet 12/05/2024 bisacodyL (DULCOLAX) 5 mg EC tablet Take 2 tablets by mouth right before beginning bowel prep. See instructions provided by the office 2 tablet 06/03/2025 calcium carbonate/vitami n D3 (CALCIUM 600 + D,3, ORAL) Take by mouth. indomethacin (INDOCIN) 50 mg capsule Take 1 Capsule by mouth 3 times daily as needed for Other (gout attack). Prn pain 05/12/2022 iron polysaccharides- vit B25-cjawu acid (FERREX 150 FORTE) 150-25-1 mg-mcg-mg capsule Take 1 capsule by mouth 1 (one) time each day. meloxicam (MOBIC) 15 mg tablet Take 1 tablet (15 mg total) by mouth 1 (one) time each day. 10/22/2024 multivitamin (MULTIPLE VITAMINS ORAL) 1 DAILY OMEGA-3 FATTY ACIDS-FISH OIL ORAL Take 2,100 mg by mouth daily. polyethylene glycol (Golytely) 236-22.74-6.74 -5.86 gram solution Take 4L by mouth once for one dose. May substitue any PEG. Starting at 2PM the day before your procedure drink 1 8oz glasses at your own pace until you complete half of the gallon. Finish 2nd half of the gallon at 8PM. 4000 mL 06/03/2025 documented as of this encounter Discharge Disposition Disposition Code Departure Means Destination Home or Self Care documented in this encounter Progress Notes * Vicky Morris RN - 06/13/2025 10:03 AM EDT Problem: Cognitive:Periop Procedure - Minor Goal: Knowledge of disease or condition will improve Outcome: Progressing Problem: Sensory:Periop Procedure - Minor Goal: Demonstrates/reports adequate pain control Outcome: Progressing PATIENT VERBALIZES UNDERSTANDING OF DISCHARGE INSTRUCTIONS documented in this encounter H&P Notes * Kathy Caceres MD - 06/13/2025 11:00 AM EDT Pre-Op Diagnosis: Colon Cancer Screening Proposed Procedure: COLONOSCOPY Performing Surgeon/MD/Endoscopist: Kathy Caceres MD Medical/History: Past Medical History: Diagnosis Date Allergic rhinitis, cause unspecified DX:Allergic rhinitis, cause unspecified Colon polyp 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 caceres SINUS SURGERY PROCEDURE: ID UNLISTED PROCEDURE ACCESSORY SINUSES Medications/Allergies: Prior to Admission medications Medication Sig Start Date End Date Taking? Authorizing Provider allopurinoL (ZYLOPRIM) 300 mg tablet Take 1 tablet by mouth once daily 11/18/24 Yes RADHA Valera aspirin 81 mg chewable tablet Chew 1 tablet (81 mg total) 1 (one) time each day. Yes Historical Provider, atorvastatin (LIPITOR) 20 mg tablet Take 1 tablet by mouth once daily 12/05/24 Yes RADHA Valera calcium carbonate/vitamin D3 (CALCIUM 600 + D,3, ORAL) Take by mouth. Yes Historical Provider, multivitamin (MULTIPLE VITAMINS ORAL) 1 DAILY Yes Historical Provider, OMEGA-3 FATTY ACIDS-FISH OIL ORAL Take 2,100 mg by mouth daily. Yes Historical Provider, bisacodyL (DULCOLAX) 5 mg EC tablet Take 2 tablets by mouth right before beginning bowel prep. See instructions provided by the office 06/03/25 Kathy Caceres MD indomethacin (INDOCIN) 50 mg capsule Take 1 Capsule by mouth 3 times daily as needed for Other (gout attack). Prn pain 05/12/22 Historical Provider, iron polysaccharides-vit L84-vwppp acid (FERREX 150 FORTE) 150-25-1 mg-mcg-mg capsule Take 1 capsule by mouth 1 (one) time each day. Historical Provider, meloxicam (MOBIC) 15 mg tablet Take 1 tablet (15 mg total) by mouth 1 (one) time each day. 10/22/24 Historical Provider, polyethylene glycol (Golytely) 236-22.74-6.74 -5.86 gram solution Take 4L by mouth once for one dose. May substitue any PEG. Starting at 2PM the day before your procedure drink 1 8oz glasses at your own pace until you complete half of the gallon. Finish 2nd half of the gallon at 8PM. 06/03/25 Kathy Caceres MD Patient Age:59 y.o. Vitals: Vitals: 06/13/25 1009 BP: (!) 152/99 Pulse: 68 Resp: 16 Temp: 36.1 ??C (97 ??F) SpO2: 98% Physical Exam: Mental Status: Clear HEENT: WNL Heart: WNL Lungs: WNL Abdomen: WNL Extremities: WNL Neuro: WNL Labs: Imaging: Diagnosis/Plan: COLON CANCER SCREENING/COLONOSCOPY documented in this encounter Procedure Notes * Torey Leroy RN - 06/13/2025 11:00 AM EDT PATIENT TOLERATED A DRINK AND A SNACK. DISCUSSED RESULT WITH PATIENT. FALL RISK REVIEWED. ALL PERSONAL EFFECTS RETURNED TO PATIENT. documented in this encounter Plan of Treatment Not on file documented as of this encounter Procedures Procedure Name Priority Date/Time Associated Diagnosis Comments COLONOSCOPY Routine 06/13/2025 11:03 AM EDT Hx of colonic polyps documented in this encounter Results * COLONOSCOPY Anesthesia - MAC; [facility] ENDOSCOPY (06/13/2025 11:03 AM EDT) Anatomical Region Laterality Modality Endoscopy 06/13/2025 10:4 7 AM EDT Impressions 06/13/2025 11:04 AM EDT - Diverticulosis in the sigmoid colon. - Internal hemorrhoids. - The examination was otherwise normal. - No specimens collected. Recommendation: - Discharge patient to home. - Repeat colonoscopy in 10 years for surveillance. Narrative 06/13/2025 11:[address] [facility] GI Patient Name: Polo Cherry Procedure Date: 06/13/2025 10:47 AM Date of : 1965 Age: 59 Gender: Male Note Status: Finalized Attending MD: Kathy Caceres MD, Procedure Date No Time: 06/13/2025 Procedure: Colonoscopy Indications: High risk colon cancer surveillance: Personal history of colonic polyps Providers: Kathy Caceres MD Referring MD: Kathy Caceres MD Medicines: Monitored Anesthesia Care Complications: No immediate complications. Estimated blood loss: None. Estimated Blood Loss: Estimated blood loss: none. Procedure: Pre-Anesthesia Assessment: - Prior to the procedure, a History and Physical was performed, and patient medications and allergies were reviewed. The patient is competent. The risks and benefits of the procedure and the sedation options and risks were discussed with the patient. All questions were answered and informed consent was obtained. Patient identification and proposed procedure were verified by the physician, the nurse, the gear cutting machine set up operator and the snow technician in the pre-procedure area in the endoscopy suite. Mental Status Examination: alert and oriented. Airway Examination: normal oropharyngeal airway and neck mobility. Respiratory Examination: clear to auscultation. CV Examination: normal. Prophylactic Antibiotics: The patient does not require prophylactic antibiotics. Prior Anticoagulants: The patient has taken no anticoagulant or antiplatelet agents. ASA Grade Assessment: II - A patient with mild systemic disease. After reviewing the risks and benefits, the patient was deemed in satisfactory condition to undergo the procedure. The anesthesia plan was to use monitored anesthesia care (MAC). Immediately prior to administration of medications, the patient was re-assessed for adequacy to receive sedatives. The heart rate, respiratory rate, oxygen saturations, blood pressure, adequacy of pulmonary ventilation, and response to care were monitored throughout the procedure. The physical status of the patient was re-assessed after the procedure. After I obtained informed consent, the scope was passed under direct vision. Throughout the procedure, the patient's blood pressure, pulse, and oxygen saturations were monitored continuously. The Olympus Colonoscope was introduced through the anus and advanced to the cecum, identified by appendiceal orifice and ileocecal valve. The colonoscopy was performed without difficulty. The patient tolerated the procedure well. The quality of the bowel preparation was good. Findings: The perianal and digital rectal examinations were normal. Scattered small-mouthed diverticula were found in the sigmoid colon. Internal hemorrhoids were found during retroflexion. The hemorrhoids were Grade II (internal hemorrhoids that prolapse but reduce spontaneously). The exam was otherwise without abnormality. Procedure Code(s): --- Professional --- G0105, Colorectal cancer screening; colonoscopy on individual at high risk Diagnosis Code(s): --- Professional --- Z86.010, Personal history of colonic polyps CPT copyright 2020 [employer]. All rights reserved. The codes documented in this report are preliminary and upon gear technician review may be revised to meet current compliance requirements. Kathy Caceres MD 06/13/2025 11:03:55 AM This report has been signed electronically.Kathy Caceres MD Number of Addenda: 0 Note Initiated On: 06/13/2025 10:47 AM Scope Withdrawal Time: 0 hours 6 minutes 12 seconds Scope In: 10:54:51 AM Scope Out: 11:03:28 AM Endoscopy Department at [facility] - [address] [place] [id number] Procedure Note Kathy Caceres MD - 06/13/2025 [facility] GI Patient Name: Polo Cherry Procedure Date: 06/13/2025 10:47 AM Date of : 1965 Age: 59 Gender: Male Note Status: Finalized Attending MD: Kathy Caceres MD, Procedure Date No Time: 06/13/2025 Procedure: Colonoscopy Indications: High risk colon cancer surveillance: Personalhistory of colonic polyps Providers: Kathy Caceres MD Referring MD: Kathy Caceres MD Medicines: Monitored Anesthesia Care Complications: No immediate complications. Estimated blood loss:None. Estimated Blood Loss: Estimated blood loss: none. Procedure: Pre-Anesthesia Assessment: - Prior to the procedure, a History and Physicalwas performed, and patient medications and allergieswere reviewed. The patient is competent. The risks and benefits of the procedure and the sedation optionsand risks were discussed with the patient. Allquestions were answered and informed consent was obtained. Patient identification and proposed procedure were verified by the physician, the nurse, theanesthetist and the snow technician in the pre-procedure area in the endoscopy suite. Mental Status Examination: alertand oriented. Airway Examination: normal oropharyngeal airway and neck mobility. Respiratory Examination: clear to auscultation. CV Examination: normal. Prophylactic Antibiotics: The patient does notrequire prophylactic antibiotics. Prior Anticoagulants: The patient has taken no anticoagulant or antiplatelet agents. ASA Grade Assessment: II - A patient withmild systemic disease. After reviewing the risks and benefits, the patient was deemed in satisfactory condition to undergo the procedure. The anesthesia plan was to use monitored anesthesia care (MAC). Immediately prior to administration of medications, the patient was re-assessed for adequacy to receive sedatives. The heart rate, respiratory rate, oxygen saturations, blood pressure, adequacy of pulmonary ventilation, and response to care were monitored throughout the procedure. The physical status ofthe patient was re-assessed after the procedure. After I obtained informed consent, the scope was passed under direct vision. Throughout theprocedure, the patient's blood pressure, pulse, and oxygen saturations were monitored continuously. TheOlympus Colonoscope was introduced through the anus and advanced to the cecum, identified by appendiceal orifice and ileocecal valve. The colonoscopy was performed without difficulty. The patient tolerated the procedure well. The quality of the bowel preparation was good. Findings: The perianal and digital rectal examinations were normal. Scattered small-mouthed diverticula were found inthe sigmoid colon. Internal hemorrhoids were found duringretroflexion. The hemorrhoids were Grade II (internal hemorrhoids that prolapse but reduce spontaneously). The exam was otherwise without abnormality. Procedure Code(s): --- Professional --- G0105, Colorectal cancer screening; colonoscopy on individual at high risk Diagnosis Code(s): --- Professional --- Z86.010, Personal history of colonic polyps CPT copyright 2020 [employer]. All rights reserved. The codes documented in this report are preliminary and upon gear technician reviewmay be revised to meet current compliance requirements. Kathy Caceres MD 06/13/2025 11:03:55 AM This report has been signed electronically.Kathy Caceres MD Number of Addenda: 0 Note Initiated On: 06/13/2025 10:47 AM Scope Withdrawal Time: 0 hours 6 minutes 12 seconds Scope In: 10:54:51 AM Scope Out: 11:03:28 AM Endoscopy Department at [facility] - [address] [place] [phone] IMPRESSION: - Diverticulosis in the sigmoid colon. - Internal hemorrhoids. - The examination was otherwise normal. - No specimens collected. Recommendation: - Discharge patient to home. - [facility] Kathy Caceres MD GI~PROCEDURE ORDERABLES Fin al Result documented in this encounter Visit Diagnoses Diagnosis Hx of colonic polyps Personal history of colonic polyps documented in this encounter Historical Medications * This list may reflect changes made after this encounter. iron polysaccharides-v it G11-lkwui acid (FERREX 150 FORTE) 150-25-1 mg-mcg-mg capsule Take 1 capsule by mouth 1 (one) time each day. aspirin 81 mg chewable tablet Chew 1 tablet (81 mg total) 1 (one) time each day. added in this encounter Care Teams Fertilizer Mixer Relationship Specialty Start Date End Date Vargas Day MD [address] [place] [address] Dr Audrey [place] PCP - General Family Medicine 01/08/25 documented as of this encounter
--- OUTSIDE RECORDS SUMMARY | 2025-06-13 10:29 | XMS_ITS | Encounter Summary ---
Author Organization [facility] Address [address] [place] [address] Care Team Providers Care Linux System Admin Name Role Phone Vargas Day MD Primary Care Provider [phone] Reason for Visit * Auth/Cert (Routine) Specialty Diagnoses / Procedures Referred By Basia t Referred To Contact Diagnoses Personal history of colon polyps, unspecified Procedures COLONOSCOPY [place] COLONOSCOPY FLEXIBLE DIAGNOSTIC W COLLECTION SPECIMEN BRUSHING/WASHING [facility] End[facility] [address] [place] [address] Phone: tel: Referral ID Status Reason Start Date Expiration Date Visits Re quested Visits Authorized [id number] 1 1 Encounter Details Date Type Department Care Team (Late st Contact Info) Description 06/13/2025 10:29 AM EDT Anesthesia Event [facility] Endoscopy [address] [place] [address] Breonna Barbour MD [address] [place] [address] Anesthesia Record Procedure Summary Procedure Name Responsible Anesthesiologist Anesthesia Start Time Anesthesia Stop Time COLONOSCOPY Breonna Barbour MD 06/13/25 1029 06/13/25 110 5 Events Date Time Event Comment 06/13/2025 1025 1029 An Start 1032 In Room 1032 An Start Data The patient wa s reevaluated immediately before moderate or deep sedation use and before anesthesia induction. 1052 Anesthesia Ready 1103 Out of Room 1103 an stop data 1105 Handoff to RN I completed my handoff to the receiving nurse during which we: 1. Identified the patient 2. Identified the responsible provider 3. Reviewed the pertinent medical history 4. Discussed the surgical course 5. Reviewed intra-op anesthesia management and issues during anesthesia 6. Set expectations for post-procedure period 7. Allowed opportunity for questions and acknowledgement of understanding. 1105 An Stop Meds Name Total propofol (DIPRIVAN) injection 10 mg/mL 3 00 mg lidocaine PF (XYLOCAINE-MPF) local injec tion 2% 100 mg lactated Ringer's infusion 800 mL * Agents No agents on file. * Blood No blood administrations on file. Lines, Drains, and Airways Type Details Placement Removal Peripheral IV Placement Date: 05/26 06/19; Placement Time: 1011; Catheter Size: 20 G; Orientation: Posterior, Right; Location: Hand; Site Prep: Chlorhexidine; Insertion Attempts: 1; Patient Tolerance: Tolerated well; Removal Date: 06/13/25; Removal Time: 1113 06/13/25 1011 by Vicky Morris RN 06/13/25 1113 by Torey Leroy RN documented in this encounter Social History Tobacco Use Types Packs/Day Years [...] AM EDT documented as of this encounter Progress Notes * Breonna Barbour MD - 06/13/2025 1:46 PM EDT Patient: Polo Cherry Procedure Summary Date: 06/13/25 Room / Location: [facility] Endoscopy Anesthesia Start: 1029 Anesthesia Stop: 1104 Procedure: COLONOSCOPY Diagnosis: Hx of colonic polyps (High risk colon cancer surveillance: Personal history of colonic polyps) Scheduled Providers: Kathy Caceres MD; Breonna Barbour MD; Lex Flores CRNA Responsible Provider: Breonna Barbour MD Anesthesia Type: MAC ASA Status: 2 Anesthesia Plan: MAC Last Vitals: Vitals Value Taken Time BP 134/91 06/13/25 1124 Pulse 77 06/13/25 1124 Resp 19 06/13/25 1124 SpO2 98 % 06/13/25 1124 No data recorded Anesthesia Post Evaluation Patient location during evaluation: PACU Patient participation: complete - patient participated Level of consciousness: awake Pain management: adequate Airway patency: patent Anesthetic complications: no Cardiovascular status: acceptable Respiratory status: acceptable Hydration status: acceptable Comments: Patient seen and evaluated prior to discharge from PACU. Note may have been written at a later time due to clinical necessity. Nausea: No Vomiting: No There were no known notable events for this encounter. * Breonna Barbour MD - 06/13/2025 10:02 AM EDT 59 y.o. male scheduled for [COLONOSCOPY [GI6]] Ht Readings from Last 1 Encounters: 04/17/23 1.702 m (67 ) Wt Readings from Last 1 Encounters: 04/17/23 86.3 kg (190 lb 3.2 oz) There is no height or weight on file to calculate BMI. Past Medical History: Diagnosis Date ??? Allergic rhinitis, cause unspecified DX:Allergic rhinitis, cause unspecified ??? 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 Diverticulosis 01/09/2014 DX:Diverticulosis ??? Elevated cholesterol 08/18/2010 DX:Elevated cholesterol ??? Gout DX:Gout ??? Gout, unspecified 06/11/2007 DX:Gout, unspecified ??? Headache(784.0) DX:Headache(784.0) Past Surgical History: Procedure Laterality Date ??? COLONOSCOPY 01/09/2014 PROCEDURE: HISTORICAL COLONOSCOPY; COMMENT: tics and hemorrhoids; repeat in ten yrs ??? COLONOSCOPY 01/26/2021 PROCEDURE: HISTORICAL COLONOSCOPY; COMMENT: dr. caceres ??? SINUS SURGERY PROCEDURE: [place] UNLISTED PROCEDURE ACCESSORY SINUSES Denies anesthesia complications Allergies Allergen Reactions ??? Nut - Unspecified Anaphylaxis Walnuts and [place] Nuts Current Outpatient Medications on File Prior to Encounter Medication Sig Dispense Refill ??? allopurinoL (ZYLOPRIM) 300 mg tablet Take 1 tablet by mouth once daily 90 tablet 0 ??? atorvastatin (LIPITOR) 20 mg tablet Take 1 tablet by mouth once daily 90 tablet 0 ??? bisacodyL (DULCOLAX) 5 mg EC tablet Take 2 tablets by mouth right before beginning bowel prep. See instructions provided by the office 2 tablet 0 ??? calcium carbonate/vitamin D3 (CALCIUM 600 + D,3, ORAL) Take by mouth. ??? indomethacin (INDOCIN) 50 mg capsule Take 1 Capsule by mouth 3 times daily as needed for Other (gout attack). Prn pain ??? meloxicam (MOBIC) 15 mg tablet Take 1 tablet (15 mg total) by mouth 1 (one) time each day. ??? multivitamin (MULTIPLE VITAMINS ORAL) 1 DAILY ??? OMEGA-3 FATTY ACIDS-FISH OIL ORAL Take 2,100 mg by mouth daily. ??? polyethylene glycol (Golytely) 236-22.74-6.74 -5.86 gram solution Take 4L by mouth once for onedose. May substitue any PEG. Starting at 2PM the day before your procedure drink 1 8oz glasses at your own pace until you complete half of the gallon. Finish 2nd half of the gallon at 8PM. 4000 mL 0 No current facility-administered medications on file prior to encounter. Current In-hospital Medications Social History Tobacco Use ??? Smoking status: Never ??? Smokeless tobacco: Never Substance Use Topics ??? Alcohol use: Yes ??? Drug use: No Is the patient a current smoker (e.g. cigarette, cigar, pip, e-cigarette, or mariajuana)? Yes [] No[] Patient previously instructed to abstain from smoking on the day of procedure? Yes [] No[] Patient smoked on the day of procedure? Yes [] No[] ASPIRE smoking VBR: [] Not interested in quitting [] Interested in quitting- referred to treatment [] Interested in quitting - treatment provided Visit Vitals Smoking Status Never Available cardiac studies reviewed: No results found. EKG No results found for this or any previous visit (from the past 4464 hours). ECHO No results found for this or any previous visit. CATH No results found for this or any previous visit. LABS: No results found for: WBC , HGB , HCT , MCV , PLT No results found for: GLUCOSE , CALCIUM , NA , K , CO2 , CL , BUN , CREATININE No results found for: INR , PROTIME No results found for: PTT Denies cardiac, pulm, neuro, hepatic or renal s/sx. Patient meets ASA guidelines for NPO status. > 4 mets without anginal symptoms. Relevant labs, vitals, imaging, cardiac and pulmonary studies as well as HPI, Meds, Allergies, ROS,PMH, PSH, SH, and FH reviewed. Relevant Problems Neuro/Psych (+) Headache Other gout Clinical information reviewed: Anesthesia Plan ASA 2 Anesthesia Plan: MAC Anesthesia Considerations MAC Plan Factors Patient is not a current smoker Smoking cessation education has not been provided Induction method: intravenous Anesthetic plan and risks discussed with patient. Anesthesia Plan discussed with DIGITAL HARDWARE DESIGN ENGINEER. Anesthesia Evaluation Airway Mallampati: II Thyromental distance: >3 FB Neck ROM: fullnot intubatedno noted risk Dental Pulmonary breath sounds clear to auscultation Cardiovascular Rhythm: regular Rate: normal Neuro/Psych Mental Status: alert and oriented GI/Hepatic/Renal Endo/Other Abdominal Abdomen: soft. Bowel sounds: normal. PONV RISK SCORE: 1 There were no vitals filed for this visit. SpO2 Readings from Last 1 Encounters: No data found for SpO2 No results found for: WBC , RBC , HGB , HCT , PLT , MCV Allergies Allergen Reactions ??? Nut - Unspecified Anaphylaxis Walnuts and [place] Nuts STOP BANG: No data recorded NPO Status: No data recorded documented in this encounter Plan of Treatment Not on file documented as of this encounter Visit Diagnoses Not on filedocumented in this encounter Administered Medications Inactive Administered Medications - up to 3 most recent administrations Medication Order MAR Action Action Date Dose Rate Site lactated Ringer's infusion intravenous, Continuous PRN, Starting on Mon06/13/25 at 1029, Anesthesia Intraprocedure New Bag 06/13/2025 10:29 AM EDT lidocaine (PF) (XYLOCAINE-MPF) 2 % injection injection, As needed, Starting on Mon06/13/25 at 1052, Anesthesia Intraprocedure Given 06/13/2025 10:52 AM EDT 100 mg propofoL (DIPRIVAN) injection intravenous, As needed, Starting on Mon06/13/25 at 1052, Anesthesia Intraprocedure Given 06/13/2025 11:00 AM EDT 50 mg Given 06/13/2025 10:55 AM EDT 50 mg Given 06/13/2025 10:54 AM EDT 40 mg documented in this encounter Care Teams Linux System Admin Relationship Specialty Start Date End Date Vargas Day MD [address] [place] [address] Dr Audrey [place] PCP - General Family Medicine 01/08/25 documented as of this encounter
--- NOTE | 2025-06-18 08:03 | MHC.OFFVIS ---
Vital Signs 06/18/25 08:04 Height 5 ft 7.4 in Weight 190 lb 4 oz BMI 29.4 BP 122/82 Blood Pressure Location Lt brachial Position Sitting Pulse 62 Pulse Source Pulse Oximeter Pulse Oximetry (%) 98 Oxygen Delivery Method Room Air Intake Visit Reasons: 3m follow up Intake Note: Patient presents follow up Sleep. HST in chart(AHI-11, Supine-30, ISABELLA-74%. APAP 5-20). Accompanied by: Self / Same As Patient Allergies walnut Allergy (Unknown, Verified 06/18/25 08:09) throat closer HPI Comments Details: 59 year old male here for a sleep apnea referred to us by Dr. Day. 05/2025 HST cw AHI 11 and suppine AHI is 30 with O2 isabella to 74%, with 20% of snoring TIB. We reviewed his sleep study and he does have mild arlen with oxygen desaturation to 74%. Will start him on APAP [id number]. He has been feeling tired all the time and especially when driving after lunch, he notices he nods as he is driving. He goes to bed at 10pm and gets up at 6am, with 3 bathroom breaks and has difficulty falling asleep and staying asleep. He has a deviated septum, takes Afrin twice daily, however feels congested when laying flat and can't breathe, will breathe through the mouth. His mouth gets very dry.Denies bruxism and morning headaches. RLS uncomfortable sensation to move the legs bilaterally, keeps him up at night, stretching and walks around. He has gout, on allopurinol and well managed. Mood is generally good. Memory is stable. Drinks alcohol on the weekends, does not smoke or vape. 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 Current occupational exposures/hazards: No Cognitive needs: No Hearing needs: No Vision needs: Yes Physical Exam Vital Signs: Last Vital Signs Pulse 62 06/18/25 08:04 BP 122/82 06/18/25 08:04 Pulse Ox 98 06/18/25 08:04 Oxygen Delivery Method Room Air 06/18/25 08:04 BMI result Body Mass Index 29.4 Const General: cooperative, comfortable and no acute distress Nutritional Appearance: average body habitus Orientation/consciousness: patient oriented x3 HEENT Face and sinus: Yes face symmetric Throat: Yes other ([place] 2) Eyes Pupils: Equal, round and reactive pupils present Neck Neck: Yes full ROM Resp Effort & Inspection: normal respiratory effort and able to speak in complete sentences Neuro General: patient oriented x3 and moves all extremities Cranial nerves: Yes Facial sensation intact/muscles of mastication intact, Yes Equal, round and reactive pupils present, Yes Normal accommodation reflex present, Yes Normal facial strength present, Yes Midline tongue present, Yes Ability to bilaterally rotate head present and Yes Ability to bilaterally elevate shoulders present Cognition (Neuro): normal cognition Gait exam (Neuro): Normal gait present Motor exam (neuro): 5/5 motor strength present throughout and Normal motor muscle tone present throughout Psych Appearance: grossly normal Mental Status: mental status grossly normal Thought process: Normal thought process present Thought content: Normal thought content present Assessment & Plan Assessment & Plan (1) Excessive daytime sleepiness: Code(s): G47.19 - Other hypersomnia Category: Medical (2) Deviated septum: Code(s): J34.2 - Deviated nasal septum Category: Medical (3) ARLEN (obstructive sleep apnea): Code(s): G47.33 - Obstructive sleep apnea (adult) (pediatric) Category: Medical Plan HST reviewed with pt. he has ARLEN will start him on cpap [id number] and f/u for compliance. Use cpap daily and >4 hours a day. Lab reviewed with pt. ENT Nasal Septum Deviation if cpap does not improve symptoms. f/u in 3 months Patient Instructions: Sleep Hygiene provided: set a scheduled bedtime and wake time to help regulate the circadian rhythm and balance the release of pituitary hormones. Sleep in a dark room, temperatures below 68 degrees, and no devices n bed. Limit caffeinated products 6 hours prior to bed, and limit fluids 2-4 hours prior to bed. Gentle night yoga, diffusing essential oils, and playing soft music can be relaxing. Coding Level of Care Code Est Pt Level 4 (01597) Diagnoses Excessive daytime sleepiness G47.19 Deviated septum J34.2 ARLEN (obstructive sleep apnea) G47.33
[2025-06-18 08:04] VITALS: BP 122/82; PULSE 62; O2SAT 98; BMI 29.4
--- OUTSIDE RECORDS SUMMARY | 2025-06-18 08:04 | XMS_ITS | Clinical Summary ---
Author Organization [facility] [address] [place] [address] [place] [phone] Phone Care Team Providers Care Manager Underwriting Name Role Phone Vargas Day MD Primary Care Provider Allergies Active Allergy Reactions Criticality Noted Date Comments Nut - Unspecified Anaphylaxis High 08/17/2010 Walnuts and [place] Nuts Medications indomethacin (INDOCIN) 50 mg capsule Take 1 Capsule by mouth 3 times daily as needed for Other (gout attack). Prn pain 2 Active OMEGA-3 FATTY ACIDS-FISH OIL ORAL Take 2,100 mg by mouth daily. Active calcium carbonate/vitam in D3 (CALCIUM 600 + D,3, ORAL) Take by mouth. Activ e multivitamin (MULTIPLE VITAMINS ORAL) 1 DAILY Activ e allopurinoL (ZYLOPRIM) 300 mg tablet Take 1 tablet by mouth once daily 90 tablet 5 Active atorvastatin (LIPITOR) 20 mg tablet Take 1 tablet by mouth once daily 90 tablet 5 Active meloxicam (MOBIC) 15 mg tablet Take 1 tablet (15 mg total) by mouth 1 (one) time each day. 5 Active bisacodyL (DULCOLAX) 5 mg EC tablet Take 2 tablets by mouth right before beginning bowel prep. See instructions provided by the office 2 tablet 5 Active polyethylene glycol (Golytely) 236-22.74-6.74 -5.86 gram solution Take 4L by mouth once for one dose. May substitue any PEG. Starting at 2PM the day before your procedure drink 1 8oz glasses at your own pace until you complete half of the gallon. Finish 2nd half of the gallon at 8PM. 4000 mL Active aspirin 81 mg chewable tablet Chew 1 tablet (81 mg total) 1 (one) time each day. Active iron polysaccharides -vit V22-lwqdj acid (FERREX 150 FORTE) 150-25-1 mg-mcg-mg capsule Take 1 capsule by mouth 1 (one) time each day. Active Active Problems Problem Noted Date Diagnosed Date Chronic bilateral low back pain without sciatica 10/05/2022 Diverticulitis 11/27/2020 Overview (09/15/2024): x2 Anxiety 02/18/2020 Erectile dysfunction 03/02/2016 Hypercholesterolemia 06/23/2014 Overweight 10/18/2011 Congenital reduction deformi ties of brain ([facility] V24, [facility] V28) 06/11/2007 Gout, unspecified 06/11/2007 Overview (09/15/2024): Left first MTP jt Allergic rhinitis 04/17/2006 Headache 04/17/2006 Encounters Date Type Department Care Team Description 06/13/2025 10:29 AM EDT Anesthesia Event [facility] [address] [place] [address] Breonna Barbour MD 06/13/2025 9:55 AM EDT - 06/13/2025 11:59 PM EDT Hospital Encounter [facility] [address] [place] [address] Kathy Caceres MD Claudio, Raymund, CRNA Spencer, Mark A, MD Hx of colonic polyps Discharge Disposition: Home or Self Care 03/19/2025 Telephone Gastroenterology - [place] [address] [facility] [address] [facility] [address] [place] [address] Kathy Caceres MD from Last [...] Surgery Date Site/Laterality Comments SINUS SURGERY PROCEDURE: [place] UNLISTED PROCEDURE ACCESSORY SINUSES COLONOSCOPY 01/09/2014 PROCEDURE: HISTORICAL COLONOSCOPY; COMMENT: tics and hemorrhoids; repeat in ten yrs COLONOSCOPY 01/26/2021 PROCEDURE: HISTORICAL COLONOSCOPY; COMMENT: dr. caceres Medical History Medical History Date Comments Allergic rhinitis, cause unspecified DX:Allergic rhinitis, cause unspecified Headache(784.0) DX:Headache(784. 0) Gout, unspecified 06/11/2007 DX:Gout, unspe cified Congenital reduction deformi ties of brain ([facility] V24, [facility] V28) 06/11/2007 DX:Congenital reducti on deformities of brain ([facility]) Gout DX:Gout Elevated cholesterol 08/18/2010 DX:Elevated cholesterol Diverticulosis 01/09/2014 DX:Diverticulosi s Colon polyp Migraines Diverticulitis Family History Medical History Relation Name Comments [...] Orientation Straight 06/13/2025 9: 53 AM EDT Obstetrics History Last Filed Vital Signs Vital [...] Mass Index 28.98 06/13/2025 10:09 AM EDT Plan of Treatment Health Maintenance Due Date Last Done Comments Pneumococcal Vaccine: 50+ Years (1 of 1 - PCV) 2013 Zoster Vaccines (1 of 2) 2013 Social Influencers of Health Screening 09/03/2022 Depression Screening 09/25/2024 COVID-19 Vaccine (3 - season) 2025 03/06/2021, 02/06/2021 Influenza Vaccine (#1) 2025 , 09/05/2023, 10/05/2022, Additional history exists Cholesterol Screening (Lipid Panel) 04/17/2028 04/17/2023 Colorectal Cancer Screening: Colonoscopy 06/13/2030 06/13/2025, 01/26/2021 DTaP,Tdap,and Td Vaccines (4 - Td or [...] 11:03 AM EDT Hx of colonic polyps LIPID PANEL Routine 04/17/2023 HEPATITIS C SCREENING Routine 12/07/2020 HIV SCREENING Routine 12/07/2020 from Last 3 Months or Most Recently Relevant to Health Maintenance Results * COLONOSCOPY Anesthesia - MAC; [facility] ENDOSCOPY (06/13/2025 11:03 AM EDT) Anatomical Region Laterality Modality Endoscopy 06/13/2025 10:4 7 AM EDT Impressions 06/13/2025 11:04 AM EDT - Diverticulosis in the sigmoid colon. - Internal hemorrhoids. - The examination was otherwise normal. - No specimens collected. Recommendation: - Discharge patient to home. - Repeat colonoscopy in 10 years for surveillance. Narrative 06/13/2025 11:[address] [facility] Patient Name: Polo Cherry Procedure Date: [...] verified by the physician, the nurse, the aqueduct and reservoir keeper and the psychiatric technician in the pre-procedure area in the [...] history of colonic polyps CPT copyright 2020 [employer]. All rights reserved. The codes documented in this report are preliminary and upon torpedoman's mate review may be revised to meet current compliance requirements. Kathy Caceres MD 06/13/2025 11:03:55 AM This report has been signed electronically.Kathy Caceres MD Number of Addenda: 0 Note Initiated On: 06/13/2025 10:47 AM Scope Withdrawal Time: 0 hours 6 minutes 12 seconds Scope In: 10:54:51 AM Scope Out: 11:03:28 AM Endoscopy Department at [facility] - [address] [place] [phone] Procedure Note Kathy Caceres MD - 06/13/2025 [facility] Patient Name: Polo Cherry Procedure Date: [...] the physician, the nurse, theanesthetist and the psychiatric technician in the pre-procedure area in the [...] history of colonic polyps CPT copyright 2020 [employer]. All rights reserved. The codes documented in this report are preliminary and upon torpedoman's mate reviewmay be revised to meet current compliance requirements. Kathy Caceres MD 06/13/2025 11:03:55 AM This report has been signed electronically.Kathy Caceres MD Number of Addenda: 0 Note Initiated On: 06/13/2025 10:47 AM Scope Withdrawal Time: 0 hours 6 minutes 12 seconds Scope In: 10:54:51 AM Scope Out: 11:03:28 AM Endoscopy Department at [facility] - [address] [place] [phone] IMPRESSION: - Diverticulosis in the sigmoid colon. - Internal hemorrhoids. - The examination was otherwise normal. - No specimens collected. Recommendation: - Discharge patient to home. - Repeat colonoscopy in 10 years forsurveillance. us Kathy Caceres MD GI~PROCEDURE ORDERABLES Fin al Result * (ABNORMAL) Lipid panel (04/17/2023) LDL/HDL Ratio 2 0 - 4 Triglycerides 45 0 - 150 mg/dL Cholesterol 205(A) 0 - 200 mg/dL HDL 105 >=40 mg/dL LDL Cholesterol 91 0 - 100 mg/dL Blood Venous blood specimen / Unknown Historical Provider LAB BLOOD ORDERABLES Arianne l Result * HIV Screening (12/07/2020) Pathologist [facility] HIV Screening abstracted Result [facility] Historical Provider HEALTH MAINTENANCE Final Result * Hepatitis C Screening (12/07/2020) Pathologist [facility] Hepatitis C Screening abstracted Historical Provider HEALTH MAINTENANCE Final Result from Last 3 Months or Most Recently Relevant to Health Maintenance Insurance [facility] Care Teams Manager Underwriting Relationship Specialty Start Date End Date Vargas Day MD [address] [place] [address] Dr Audrey [place] PCP - General Family Medicine 01/08/25
== END 2025-06-18 08:38 | disposition home or self-care (01) ==
LOC: HO.HSMC 07:59
PROVIDERS: PCP Family Medicine; Visit Provider Physician Assistant Medical
DX: G47.19 Other hypersomnia (principal); J34.2 Deviated nasal septum; G47.33 Obstructive sleep apnea (adult) (pediatric)
CPT/HCPCS: 99214

== ENCOUNTER 2025-07-04 08:34 | Outpatient (AMB) | payer OTHER, SELFPAY ==
--- NOTE | 2025-07-04 08:37 | A.OFFPC_ITS ---
Vital Signs 07/04/25 08:43 Height 5 ft 7 in Weight 187 lb 8 oz BMI 29.4 BP 130/80 Blood Pressure Location Rt brachial Position Sitting Respiration 12 Pulse 70 Pulse Source Pulse Oximeter Temp 97.6 F Temp Source Temporal Artery Scan Pulse Oximetry (%) 97 Oxygen Delivery Method Room Air Intake Visit Reasons: f/u htn, chronic conditions RE Intake Note: Polo presents in the office today for a follow up to colonoscopy and a sleep study performed. Allergies walnut Allergy (Unknown, Verified 07/04/25 08:40) throat closer Medication List - Last Reconciled 07/04/25 by Vargas Day MD allopurinol 300 mg PO DAILY 90 days ascorbic acid (vitamin C) 1 g PO Q6H aspirin (Adult Aspirin Regimen) 81 mg PO DAILY atorvastatin 20 mg PO DAILY 90 days calcium carbonate (Calcium 600) 600 mg PO DAILY multivitamin (Daily Multi-Vitamin tablet) 1 tab PO DAILY omega-3 fatty acids-fish oil 360-1,200 mg (Fish Oil) 1 cap PO DAILY Tobacco use date assessed: 07/04/25 Dental Screening Dental Screen Date: 07/04/25 Did you have a dental visit in the last 12 months?: Yes Did you have a dental problem in the last 6 months where you did not have access to dental care?: No Was dental information given to patient?: Patient has dentist HPI f/u htn, chronic conditions RE HPI Details 59 y/o male presents to f/u HTN, chronic conditions. BP today 130/80, 70p. Had been following up with sleep medicine. They plan to start him on CPAP. They do note a deviated septum. 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 Current occupational exposures/hazards: No Cognitive needs: No Hearing needs: No Vision needs: Yes Questionnaire Thrive Questionnaire Date Thrive assessed: 10/03/24 I am a: Patient What is your living situation today?: I have a steady place to live Within the past 12 months, did the food you bought not last and you didn't have the money to get more?: Never true Within the past 12 months, did you worry whether your food would run out before you got money to buy more?: Never true Do you have trouble paying for medicines?: No Do you have trouble getting transportation to medical appointments?: No Do you have trouble paying your heating and electricity bill?: No Do you have trouble taking care of your child, family member or friend?: No Do you have trouble with day-to-day activities such as bathing, preparing meals, shopping, managing finances, etc.?: No Are you currently unemployed and looking for a job?: No Are you interested in more education?: No Please select the resources that you would like help with: None Currently or been in a relationship where the following occur: No concerns reported THRIVE Score: 0 GABRIEL-7 AMB Questionnaire GABRIEL-7 Date GABRIEL - 7 assessed: 10/09/24 Source: Developed by Drs. Danny Sanchez, Shavon Love, Maximiliano Bee and colleagues, with an educational lynne from [employer]. Review of Systems Const Denies chills, Denies fatigue, Denies fever(s), Denies headache(s) and Denies weakness ENT Denies dizziness and Denies headache(s) Card Denies dyspnea Resp Denies cough, Denies dyspnea, Denies wheezing and Denies other (shortness of breath) Musc Denies numbness and Denies tingling Neuro Denies dizziness, Denies headache(s), Denies numbness, Denies tingling and Denies weakness Psych Denies anxiety and Denies depression Endo Denies fatigue Aller/Immun Denies wheezing Physical exam (Primary Care) Vital Signs: Last Vital Signs Temp 97.6 F 07/04/25 08:43 Pulse 70 07/04/25 08:43 Resp 12 07/04/25 08:43 BP 130/80 07/04/25 08:43 Pulse Ox 97 07/04/25 08:43 Oxygen Delivery Method Room Air 07/04/25 08:43 BMI result Body Mass Index 29.4 Tobacco/Smoking Status: Tobacco use Status Tobacco use date assessed 07/04/25 07/04/25 08:48 Patient Tobacco Use Status Never used Tobacco 07/04/25 08:43 e-Cigarette/Vaping Use Never Used 07/04/25 08:43 Thrive Assessment: Date of Thrive Assessment Date Thrive assessed 10/03/24 07/04/25 08:39 Currently or been in a relationship where the following occur: No concerns reported Const General: well developed; No acute distress Nutritional Appearance: well nourished Orientation/consciousness: patient oriented x3 HENMT Head: Yes normocephalic and Yes atraumatic Eyes General: appearance normal, both eyes and all related structures Pupils: Equal, round and reactive pupils present EOM: EOMs intact bilaterally Resp Effort & Inspection: normal respiratory effort Neuro General: patient oriented x3 and gait normal Cranial nerves: Yes Equal, round and reactive pupils present Psych Affect: normal affect Office Procedures Flu Questionnaire Does the patient have a severe egg allergy?: No Does the patient have severe life threatening allergies?: No Does the patient have a fever or illness today?: No Has the patient ever had Guillain-[place] Syndrome?: No Has the patient ever had any past reaction to a flu shot?: No Immunizations Fluarix [id number] (PF) 45 mcg (15 mcg x 3)/0.5 mL IM syringe Performing Provider: Vargas Day MD Performing Location: [facility] [place] [facility] Administered by: Aileen Tuttle RN on 07/04/25 09:35 Dose Route Admin Location Dispensed Lot Number Expiration Date 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 IM Right Deltoid 0.5 mL [id number] 03/24/26 [id number] [employer] VIS Given Date VIS Provided VIS Publication Date 07/04/25 Single Vaccine 24 Eligibility Eligibility Date Funding Source Not [facility] Eligible 07/04/25 Private Coding Level of Care Code Est Pt Level 4 (11726) Diagnoses Elevated blood pressure reading R03.0 Deviated septum J34.2 ARLEN (obstructive sleep apnea) G47.33 Immunization counseling Z71.85 Assessment & Plan Assessment & Plan (1) Elevated blood pressure reading: Code(s): R03.0 - Elevated blood-pressure reading, without diagnosis of hypertension Category: Medical Plan: Blood pressure in prehypertensive range. No indication for medicine at his time Patient has not started his CPAP yet - treatment sleep apnea will likely improve blood pressure along decreasing salt and sodium in his diet Also encouraged good weight control Will continue monitor (2) Deviated septum: Code(s): J34.2 - Deviated nasal septum Category: Medical (3) ARLEN (obstructive sleep apnea): Code(s): G47.33 - Obstructive sleep apnea (adult) (pediatric) Category: Medical (4) Immunization counseling: Code(s): Z71.85 - Encounter for immunization safety counseling Category: Medical Plan Patient phone by sleep medicine for obstructive sleep apnea and will be starting CPAP soon. He is awaiting machine Has deviated septum and has not seen ENT - he does not plan to do so. Patient would like flu shot today and will be provided Also discussed COVID, RSV shingles and pneumonia shots. Orders: Orders Influenza [id number] Immunization 07/04/25 Z23 - Encounter for immunization
[2025-07-04 08:43] VITALS: BP 130/80; PULSE 70; RESP 12; TEMP 36.4; O2SAT 97; BMI 29.4
== END 2025-07-04 09:34 | disposition home or self-care (01) ==
LOC: HO.HMCFM 08:35
PROVIDERS: PCP Family Medicine; Visit Provider Family Medicine
DX: Z23 Encounter for immunization (principal)

== ENCOUNTER → 2025-07-04 08:34 | Outpatient (BNVA) | payer OTHER, SELFPAY | PROVIDERS: PCP Family Medicine; Visit Provider Family Medicine | DX: R03.0 Elevated blood-pressure reading, without diagnosis of hypertension (principal); Z23 Encounter for immunization; J34.2 Deviated nasal septum; G47.33 Obstructive sleep apnea (adult) (pediatric); Z71.85 Encounter for immunization safety counseling | CPT/HCPCS: 90471; 90656 ==